=== PATIENT | female | born 1960 | race Caucasian/White ===

== ENCOUNTER → 2018-12-17 10:30 | Outpatient (CLI) | payer MEDICAID, SELFPAY ==
[2018-12-17 16:20] LABS: Basophils % 0.4 % (0.1-2.0); Hematocrit 40.9 % (37.0-47.0); Lymphocytes # 1.9 K/mm3 (0.7-4.5); Mean Corpuscular HGB Conc 34.1 g/dL (31.8-35.4); Mean Corpuscular Volume 88.1 fl (81-99); Mean Platelet Volume 8.8 fl (7.4-10.4); Monocytes # 0.4 K/mm3 (0.1-1.0); Monocytes % 7.5 % (1.7-9.3); Neutrophils # 2.8 K/mm3 (1.8-7.8); Neutrophils % 55.1 % (37.0-80.0); Platelet Count 215 K/mm3 (142-424); Red Blood Count 4.65 M/mm3 (4.20-5.40); Red Cell Distribution Width 13.1 % (11.5-17.5); White Blood Count 5.1 K/mm3 (4.8-10.8)
[2018-12-17 16:53] LABS: Alanine Aminotransferase 36 U/L (12-78); Albumin Level 3.7 gm/dL (3.4-5.0); Albumin/Globulin Ratio 1.2 (1.1-1.8); Alkaline Phosphatase 72 U/L (46-116); Anion Gap 15.2 mEq/L (5-15); Aspartate Amino Transferase 31 U/L (15-37); Bilirubin,Total 0.5 mg/dL (0.2-1.0); Blood Urea Nitrogen 9 mg/dL (7-18); Calcium 8.9 mg/dL (8.5-10.1); Carbon Dioxide 26 mmol/L (21.0-32.0); Chloride 105 mmol/L (98-107); Chol/HDL Ratio 5.2 (1-3.5); Cholesterol 197 mg/dL (140-200); Creatinine,Serum 0.82 mg/dL (0.55-1.02); Estimated Glomerular Filt Rate 71 ml/min (>60); GFR (African American) 86 ML/MIN (>60); Globulin 3.2 gm/dl (1.3-3.2); Glucose 91 mg/dL (74-106); HDL Cholesterol 38 mg/dL (29-89); LDL Cholesterol 132 mg/dL (0-130); Potassium 4.2 mmoL/L (3.5-5.1); Sodium 142 mmol/L (136-145); T4 (Thyroxine) 4.9 ug/dl (4.7-13.3); Thyroid Stimulating Hormone 28.16 uIU/ml (0.358-3.740); Total Protein,Serum 6.9 gm/dL (6.4-8.2); Triglycerides 133 mg/dL (30-200); VLDL Cholesterol 27 mg/dL (0-40)
[2018-12-17 19:04] LABS: Amphetamine/Metha Screen,Urine Negative ng/mL (<1000); Barbiturates Screen,Urine Negative ng/mL (<200); Benzodiazepines Screen,Urine Negative ng/mL (<200); Cannabinoid Screen,Urine Negative ng/mL (<50); Cocaine Screen,Urine Negative ng/mL (<300); Methadone Screen,Urine Positive ng/mL (<300); Opiate Screen,Urine Positive ng/mL (<300); Phencyclidine Screen,Urine Negative ng/mL (<25)
[2018-12-19 08:31] LABS: Vitamin D 25 Hydroxy 22.6 ng/mL (30.0-100.0)
== END ==
PROVIDERS: PCP Emergency Medicine; Visit Provider Nurse Practitioner Family
DX: R53.83 Other fatigue (principal); R00.2 Palpitations; R22.9 Localized swelling, mass and lump, unspecified; F32.9 Major depressive disorder, single episode, unspecified; E55.9 Vitamin D deficiency, unspecified
CPT/HCPCS: 80053; 80061; 80305; 82652; 84436; 84443; 85025; 93225; 93226

== ENCOUNTER → 2019-01-28 15:49 | Outpatient (CLI) | payer MEDICAID, SELFPAY ==
[2019-01-28 17:04] LABS: Erythrocyte Sedimentation Rate 30 mm/hr (0-30)
[2019-01-28 20:03] LABS: Free T4 (Free Thyroxine) 0.67 ng/dl (0.76-1.46); Thyroid Stimulating Hormone 15.03 uIU/ml (0.358-3.740)
[2019-01-28 20:06] LABS: C-Reactive Protein < 0.2 mg/L (0.0-0.9)
[2019-01-30 14:12] LABS: PTT-LA 46.1 sec (0.0-51.9); dRVVT 37.5 sec (0.0-47.0)
[2019-01-30 17:31] LABS: Anti-Centromere B Antibodies <0.2 AI (0.0-0.9); Anti-Jo-1 <0.2 AI (0.0-0.9); Anti-Smith Antibody <0.2 AI (0.0-0.9); Antichromatin Antibodies <0.2 AI (0.0-0.9); Antiscleroderma-70 Antibodies <0.2 AI (0.0-0.9); RNP Antibodies 0.4 AI (0.0-0.9); Sjogren's Anti-SS-A <0.2 AI (0.0-0.9); Sjogren's Anti-SS-B <0.2 AI (0.0-0.9)
[2019-01-30 18:21] LABS: Anti-DNA (DS) Ab Qn <1 IU/mL (0-9); Lupus Reflex Interpretation Comment: (.); RA Latex Turbid. <10.0 IU/mL (0.0-13.9)
[2019-01-31 06:36] LABS: Anti-Cyclic Citrullinated Pept 8 units (0-19)
== END ==
PROVIDERS: Visit Provider Nurse Practitioner Family
DX: R21 Rash and other nonspecific skin eruption (principal); R53.83 Other fatigue; R79.89 Other specified abnormal findings of blood chemistry; E66.9 Obesity, unspecified
CPT/HCPCS: 36415; 84439; 84443; 85613; 85651; 86140; 86200; 86225; 86235; 86431

== ENCOUNTER 2020-01-08 16:41 | Emergency (ER) | payer MEDICAID, SELFPAY ==
[2020-01-08 17:01] VITALS: BP 155/90; PULSE 86; RESP 18; TEMP 36.7; O2SAT 98; BMI 44.1
[2020-01-08 17:08] LABS: Apearance,Urine Clear (Clear); Bilirubin,Urine Negative (Negative); Blood, Urine Trace (Negative); Color,Urine Yellow (Yellow); Glucose,Urine (UA) Negative (Negative); Ketones,Urine Negative (Negative); Protein,Urine 1+ (Negative); UTC Leukocyte Esterase,Urine 1+ (Negative); UTC Nitrate,Urine Negative (Negative); Urobilinogen,Urine 4 EU/dl (0.2)
--- NOTE | 2020-01-08 17:11 | HMH.EDUTC ---
[facility] [place] Disposition Clinical Impression: UTI (urinary tract infection) Qualifiers: Urinary tract infection type: site unspecified Hematuria presence: with hematuria Qualified Code(s): N39.0 - Urinary tract infection, site not specified; R31.9 - Hematuria, unspecified Disposition: Home, Self-Care Condition on Discharge: Good Instructions: Urinary Tract Infection, DI for Urinary Tract Infection (UTI), Nitrofurantoin, Nitrofurantoin (Alternative Therapy) Additional Instructions: *Increase fluids. Water not Soda or Tea *Start antibiotic immediately and be sure to take as ordered for the FULL length of time although you should start to see improvement over the next 48 hours *Pyridium as needed Remember this medication will turn your urine Hudson. This is normal but it will stain what ever it gets on *You should not use Pyridium for more than 48 hours. If so , follow up with your primary physician to review urine culture and ensure that antibiotic is adequate for infection *Be SURE to follow up anytime for new or worsening symptoms with your family doctor. AND in 48 hours for urine culture results with your family doctor, if you do not have a doctor then you may call back to the [facility] for urine culture results and further treatment. We do recommend that you choose and establish care with a Primary Care Physician. AND follow up with them in 10-14 days to repeat UA to ensure infection is resolved and blood no longer present *Be sure to let your PCP know that we sent urine cultures from the [facility] so they can follow up to ensure that you area the on the correct antibiotic Call your doctor office and make appointment for 48 hours (2 days from today) to follow up and get the results of your urine culture and further treatment Make sure to call back to the [facility] on Sunday for your urine culture results to see if you are on the right medication Straight to ER if any fever, chills or life threatening symptoms Prescriptions: Nitrofurantoin Monohyd/M-Cryst [Macrobid 100 mg Capsule] 100 mg PO BID 10 Days #20 cap Transmission Status: Pending to [id number] Phenazopyridine HCl [Pyridium 200mg Tablet] 200 pow PO TID #6 tab Transmission Status: Pending to [id number] Referrals: Vanda Maciel PA [Primary Care Provider] - As needed Time of Disposition: 17:20 Medical Decision Making - Mitch Inquiry Pt receiving controlled substance: No Mitch was queried for this patient: No Vital Signs: 01/08/20 17:01 Temperature 98.1 F Temperature Source Oral Pulse Rate [Right Brachial] 86 Respiratory Rate 18 Blood Pressure [Right Arm] 155/90 H Blood Pressure Mean [Right Arm] 111 Blood Pressure Source [Right Arm] Automatic Cuff Blood Pressure Position [Right Arm] Sitting 02 Sat by Pulse Oximetry 98 Oxygen Delivery Method Room Air - Lab Data Lab results reviewed: Yes: I reviewed the patient's lab results. Lab Results 01/08/20 17:08: Urine Color Yellow, Urine Appearance Clear, Urine pH 6.0, Ur Specific Winnett 1.020, Urine Protein 1+, Urine Glucose (UA) Negative, Urine Ketones Negative, Urine Blood Trace, Urine Nitrate Negative, Urine Bilirubin Negative, Urine Urobilinogen 4, Ur Leukocyte Esterase 1+ A - Reevaluation(s) Time: 17:15 Reevaluation #1: Patient states that she has a history of kidney stone but reports pain doesnt feel like she has had before with kidney stone discussed with patient that we could send her to ED for CT and patient refused [facility] [place] HPI - General Stated complaint: Possible UTI Time Seen by Provider: 01/08/20 17:11 Mode of Arrival: Ambulatory Source of Information: Patient Limitations: No Limitations Description of Symptoms (Recalled from Triage Doc. by RN): PATIENT C/O LEFT FLANK PAIN, PAINFUL URINATION, AND FOUL SMELLING URINE X 4-5 DAYS; DENIES FEVER OR ANY OTHER SYMPTOMS HEENT Symptoms (Recalled from RN notes): No Resp Symptoms (Recalled from RN notes): No Skin Symptoms (Recalled from RN notes)
[2020-01-08 17:22] VITALS: BP 155/90; PULSE 86; RESP 18; TEMP 36.7; O2SAT 98
== END 2020-01-08 17:25 | disposition home or self-care (01) ==
PROVIDERS: Emergency Provider Nurse Practitioner; PCP Physician Assistant
DX: N30.01 Acute cystitis with hematuria (principal); F41.8 Other specified anxiety disorders; E03.9 Hypothyroidism, unspecified; Z87.442 Personal history of urinary calculi; Z79.899 Other long term (current) drug therapy
CPT/HCPCS: 81003; 87086; 87088; 87186; 99201

== ENCOUNTER → 2020-01-13 13:19 | Outpatient (CLI) | payer MEDICAID, SELFPAY ==
--- NOTE | 2020-01-13 13:24 | MR_ITS ---
PROCEDURE: MR LUMBAR SPINE WO CON CLINICAL INDICATION: LOW BACK PAIN COMPARISON: PHLEBOTOMY SUPPORT TECH/O MRI-L-SPINE W/O from 05/10/2015 TECHNIQUE: Standard multiplanar multiecho sequences are performed without contrast. 3-D MIP and myelographic images are also rendered and reviewed FINDINGS: Disc space narrowing and partial ankylosis at L3-4 with degenerative narrowing and Modic changes are again noted at the levels of L4-5 and L5-S1. There is otherwise uniform fat marrow signal hyperintensity. The spinal cord and conus medullaris is unremarkable. At the T11-T12 disc space there is no significant spinal stenosis. At the T12-L1 disc space there is mild facet arthropathy producing mild central canal stenosis. At the L1-2 disc space there is moderate facet arthropathy and hypertrophy of the ligamentum flavum as well as a broad-based disc protrusion producing stable mild central canal and mild bilateral neural foraminal stenosis. At the L3-4 disc space there is a stable broad-based disc osteophyte complex and moderate facet arthropathy producing stable mild central canal and mild bilateral neural foraminal stenosis. At the L4-5 disc space there is a broad-based disc osteophyte complex, moderate facet arthropathy, and hypertrophy of the ligamentum flavum producing stable mild central canal and mild bilateral neural foraminal stenosis. At the L5-S1 disc spaces in eccentric disc osteophyte complex and mild facet arthropathy producing mild central canal and mild left neural foraminal stenosis. The bilateral paralumbar structures are unremarkable. IMPRESSION: Stable multilevel spinal stenosis as above Dictated by: Cruzito Valverde 01/13/2020 15:58 Electronically signed by Cruzito Valverde in [place] 01/13/2020 15:58
== END ==
PROVIDERS: PCP Emergency Medicine; Visit Provider Pain Medicine Interventional Pain Medicine
DX: M54.5 Low back pain (principal)
CPT/HCPCS: 72148; 76376

== ENCOUNTER → 2021-12-19 09:53 | Outpatient (CLI) | payer MEDICAID, SELFPAY ==
[2021-12-16 16:51] LABS: Basophils # 0.1 K/mm3 (0-0.2); Basophils % 1.1 % (0.1-2.0); Hematocrit 42.2 % (37.0-47.0); Hemoglobin 14.2 g/dL (12.2-16.2); Lymphocytes # 2.1 K/mm3 (0.7-4.5); Lymphocytes % 29.5 % (10-50); Mean Corpuscular HGB Conc 33.5 g/dL (31.8-35.4); Mean Corpuscular Hemoglobin 31.5 pg (27.0-31.2); Mean Platelet Volume 9.2 fl (7.4-10.4); Monocytes # 0.5 K/mm3 (0.1-1.0); Monocytes % 6.9 % (1.7-9.3); Neutrophils # 4.4 K/mm3 (1.8-7.8); Neutrophils % 62.4 % (37.0-80.0); Platelet Count 246 K/mm3 (142-424); Red Blood Count 4.49 M/mm3 (4.20-5.40); Red Cell Distribution Width 13.4 % (11.5-17.5)
[2021-12-16 17:00] LABS: Alanine Aminotransferase 31 U/L (12-78); Albumin/Globulin Ratio 1.4 (1.1-1.8); Alkaline Phosphatase 76 U/L (38-126); Anion Gap 10.5 mEq/L (5-15); Aspartate Amino Transferase 44 U/L (14-36); Bilirubin,Total 0.5 mg/dl (0.2-1.3); Blood Urea Nitrogen 14 mg/dl (7-17); Calcium 9.5 mg/dl (8.4-10.2); Carbon Dioxide 29 mmol/L (22.0-30.0); Chloride 102 mmol/L (98-107); Chol/HDL Ratio 4.1 (1-3.5); Cholesterol 186 mg/dl (140-200); Estimated Glomerular Filt Rate 85 ml/min (>60); GFR (African American) 102 ML/MIN (>60); Globulin 2.8 g/dL (1.3-3.2); Glucose 92 mg/dl (74-100); HDL Cholesterol 45 mg/dl (40-60); Potassium 4.5 mmoL/L (3.5-5.1); Sodium 137 mmol/L (136-145); Total Protein,Serum 6.8 g/dl (6.3-8.2); Triglycerides 158 mg/dl (30-150); VLDL Cholesterol 32 mg/dL (0-40)
[2021-12-16 17:11] LABS: Direct LDL Cholesterol 103.48 mg/dL (100-129)
[2021-12-16 17:17] LABS: T4 (Thyroxine) 8.9 ug/dl (5.53-11.0)
[2021-12-16 17:18] LABS: 25-OH Vitamin D, Total 27.7 ng/mL (30-100)
== END ==
PROVIDERS: PCP Nurse Practitioner Family; Visit Provider Nurse Practitioner Family
DX: Z00.00 Encounter for general adult medical examination without abnormal findings (principal); E55.9 Vitamin D deficiency, unspecified; Z79.899 Other long term (current) drug therapy
CPT/HCPCS: 80053; 80061; 82306; 84436; 84443; 85025

== ENCOUNTER → 2022-01-11 10:10 | Outpatient (CLI) | payer MEDICAID, SELFPAY ==
[2022-01-11 10:14] LABS: Adenovirus F 40/41, stool Not Detected (NotDetected); Astrovirus Not Detected (NotDetected); Campylobacter Not Detected (NotDetected); Cryptosporidium Not Detected (NotDetected); Cyclospora Cayetanesis Not Detected (NotDetected); Entamoeba histolytica Not Detected (NotDetected); Enteroaggregative E coli Not Detected (NotDetected); Enteropathogenic E coli Not Detected (NotDetected); Enterotoxigenic E coli Not Detected (NotDetected); Giardia lamblia Not Detected (NotDetected); Norovirus Not Detected (NotDetected); Plesimonas Shigalloides, PCR Not Detected (NotDetected); Rotavirus A Not Detected (NotDetected); Salmonella, PCR Not Detected (NotDetected); Sapovirus Not Detected (NotDetected); Shiga-like toxin E coli Not Detected (NotDetected); Shigella Enterovasive E coli Not Detected (NotDetected); Vibrio Cholerae Not Detected (NotDetected); Vibrio, PCR Not Detected (NotDetected); Yersinia Entercolitica, PCR Not Detected (NotDetected)
[2022-01-11 23:10] LABS: Clostridium Difficile A/B, PCR Detected (NotDetected)
== END ==
PROVIDERS: PCP Family Medicine; Visit Provider Family Medicine
DX: R19.7 Diarrhea, unspecified (principal); A04.72 Enterocolitis due to Clostridium difficile, not specified as recurrent
CPT/HCPCS: 87506

== ENCOUNTER → 2022-09-19 23:33 | Outpatient (CLI) | payer MEDICAID, SELFPAY ==
[2022-09-19 19:00] LABS: Basophils # 0.1 K/mm3 (0-0.2); Basophils % 0.8 % (0.1-2.0); Eosinophils % 0.2 % (0.1-12.0); Hematocrit 44.2 % (37.0-47.0); Hemoglobin 14.7 g/dL (12.2-16.2); Lymphocytes # 2.1 K/mm3 (0.7-4.5); Lymphocytes % 32.9 % (10-50); Mean Corpuscular HGB Conc 33.2 g/dL (31.8-35.4); Mean Corpuscular Hemoglobin 30.1 pg (27.0-31.2); Mean Corpuscular Volume 90.6 fl (81-99); Mean Platelet Volume 8.8 fl (7.4-10.4); Monocytes # 0.5 K/mm3 (0.1-1.0); Monocytes % 7.5 % (1.7-9.3); Neutrophils # 3.7 K/mm3 (1.8-7.8); Neutrophils % 58.7 % (37.0-80.0); Platelet Count 225 K/mm3 (142-424); Red Blood Count 4.88 M/mm3 (4.20-5.40); Red Cell Distribution Width 13.3 % (11.5-17.5); White Blood Count 6.3 K/mm3 (4.8-10.8)
[2022-09-19 19:17] LABS: Alanine Aminotransferase 29 U/L (12-78); Albumin Level 4.4 g/dl (3.5-5.0); Albumin/Globulin Ratio 1.5 (1.1-1.8); Alkaline Phosphatase 67 U/L (38-126); Anion Gap 6.5 mEq/L (5-15); Aspartate Amino Transferase 43 U/L (14-36); Bilirubin,Total 0.6 mg/dl (0.2-1.3); Blood Urea Nitrogen 14 mg/dl (7-17); Calcium 9.2 mg/dl (8.4-10.2); Carbon Dioxide 31 mmol/L (22.0-30.0); Chloride 105 mmol/L (98-107); Chol/HDL Ratio 5.2 (1-3.5); Cholesterol 227 mg/dl (140-200); Estimated Glomerular Filt Rate 72 ml/min (>60); GFR (African American) 87 ML/MIN (>60); Glucose 78 mg/dl (74-100); HDL Cholesterol 44 mg/dl (40-60); Potassium 4.5 mmoL/L (3.5-5.1); Sodium 138 mmol/L (136-145); Total Protein,Serum 7.4 g/dl (6.3-8.2); Triglycerides 194 mg/dl (30-150); VLDL Cholesterol 39 mg/dL (0-40)
[2022-09-19 19:19] LABS: Iron 105 ug/dL (37-170)
[2022-09-19 19:28] LABS: Total Iron Binding Capacity 379 ug/dL (265-497)
[2022-09-19 19:29] LABS: Direct LDL Cholesterol 137.51 mg/dL (100-129)
[2022-09-19 19:34] LABS: 25-OH Vitamin D, Total 56.3 ng/mL (30-100)
[2022-09-19 19:48] LABS: Thyroid Stimulating Hormone 8.91 uIU/mL (0.465-4.68)
[2022-09-19 19:55] LABS: Ferritin 97.4 ng/ml (11.1-264)
[2022-09-19 20:07] LABS: Vitamin B12 982 pg/mL (239-931)
== END ==
PROVIDERS: PCP Physician Assistant; Visit Provider Physician Assistant
DX: Z00.00 Encounter for general adult medical examination without abnormal findings (principal); R06.02 Shortness of breath; I10 Essential (primary) hypertension; E66.9 Obesity, unspecified; R94.5 Abnormal results of liver function studies
CPT/HCPCS: 80053; 80061; 82306; 82607; 82728; 83540; 83550; 84443; 85025

== ENCOUNTER → 2022-09-28 07:29 | Outpatient (CLI) | payer MEDICAID, SELFPAY ==
--- NOTE | 2022-09-28 07:29 | US_ITS ---
FINAL REPORT TECHNIQUE: Ultrasound images of the kidneys were obtained. CLINICAL HISTORY: .hypertension FINDINGS: US RETROPERITONEAL The right kidney measures 8.7 cm in length. There is no mass or hydronephrosis. The left kidney measures 10.2 cm in length. There is no mass or hydronephrosis. There is renal cortical thinning. The spleen measures 10.3 cm in length. IMPRESSION: Left renal cortical thinning, otherwise unremarkable exam. Reviewed, Interpreted and Dictated by Omar Smith III, MD Transcribed by Maren Miranda Authenticated and [facility]
--- NOTE | 2022-09-28 08:46 | CA_ITS ---
FINAL REPORT TECHNIQUE: Grayscale, color Doppler and duplex Doppler ultrasound of the kidneys, aorta and renal arteries was performed. Multiple velocities were measured. CLINICAL HISTORY: HTN,HX KIDNEY STONES,OBESITY FINDINGS: Aorta velocity: 107 cm/sec Right kidney: 10.8 cm. No evidence of hydronephrosis or mass. Right intrarenal RI: 0.68 Right renal artery velocity: 325 cm/sec. Right RAR (Renal artery-Aortic Ratio): 3.0 Left Kidney: 10.2 cm. No evidence of hydronephrosis or mass. Left intrarenal RI: 0.62 Left renal artery velocity: 333 cm/sec. Left RAR (Renal Artery-Aortic Ratio): 3.1 IMPRESSION: Findings consistent with greater than 60% bilateral renal artery stenosis. Recommend CTA or catheter angiogram for further evaluation. Reviewed, Interpreted and Dictated by Omar Smith III, MD Transcribed by Maren Miranda Authenticated and [facility]
--- NOTE | 2022-09-28 09:20 | ECG_ITS ---
APPROVED REPORT Exam: Resting ECG HR:44 bpm ECG Measurements Heart Rate 44 AXES NM 153 P 67 QRSd 81 QRS 52 QT 440 T 55 QTc 390 Conclusion SINUS BRADYCARDIA BORDERLINE ECG UNCONFIRMED REPORT Electronically signed by : Doni Garcia MD 09/29/2022 08:13:05
== END ==
PROVIDERS: PCP Physician Assistant; Visit Provider Physician Assistant
DX: R06.02 Shortness of breath (principal); I10 Essential (primary) hypertension
CPT/HCPCS: 76770; 93005; 93976

== ENCOUNTER 2022-10-30 08:41 | Day surgery (SDC) | payer MEDICAID, SELFPAY ==
[2022-10-30] VITALS (10 sets, daily range): BP systolic 95–172; BP diastolic 50–97; PULSE 57–74; RESP 16–20; O2SAT 94–954; BMI 45.2
--- NOTE | 2022-10-30 07:57 | IR_ITS ---
APPROVED REPORT Patient Location: Outpatient PROCEDURES Bilateral selective renal angiography Bare-metal stent deployment to the ostial proximal left renal artery Bare-metal stent deployment to the ostial proximal right renal artery INDICATION Malignant hypertension, Renovascular hypertension, Renal artery stenosis, Abnormal renal duplex with greater than 60% stenosis, 35 mm gradient across the right renal artery using a 4 Dominican JR4 catheter Informed consent was obtained prior to the procedure. COMPLICATIONS None Estimated Blood Loss: Less than 10 mls TECHNIQUE 1% lidocaine used to anesthetize the right femoral groin. The right femoral artery was accessed via the Seldinger technique. A 4 Dominican sheath was placed in the right femoral artery. The JR4 catheter was used to selectively intubate each renal artery. At the end the diagnostic angiogram therapeutic heparin is administered giving a therapeutic ACT and the 4 Dominican sheath exchanged for a 7 Dominican sheath. Shortly and the guide catheter was placed in the left renal artery followed by Choice PT extra-support wire. A 6 mm x 12 mm Herculink bare-metal stent was deployed at 18 umesh reducing the severe stenosis to 0%. This procedure was repeated on the right renal artery after 35 mm gradient was identified using a 4 Dominican JR4 catheter. A 6 mm x 18 mm Herculink stent was then deployed at 18 umesh in the ostial proximal portion of the right renal artery reducing the stenosis to 0%. After achieving excellent angiograph results the apparatus was removed the groin is reprepped closure change sheath was removed good hemostasis was achieved using Perclose device patient was transferred to the postop holding in stable condition ANGIOGRAPHIC RESULTS Left renal artery singular and has an ostial 80% stenosis Right renal artery singular has an ostial and proximal 50% stenosis IMPRESSION Severe bilateral renal artery stenosis Successful percutaneous revascularization of each renal artery severe disease reduced to 0% with 1 bare-metal stent in each ostial proximal segment of the renal artery PLAN 1. Aspirin and Plavix for 1 month 2. Aggressive risk factor modification 3. Evaluation of coronary artery disease based on peripheral artery disease Electronically signed by : Stanford Cordero MD 10/30/2022 11:27:39
[2022-10-30 09:15] LABS: MANUAL DIFFERENTIAL MANUAL DIFFERENTIAL (MANUAL DIFF)
[2022-10-30 09:20] LABS: Basophils % 0.4 % (0.1-2.0); Eosinophils % 0.2 % (0.1-12.0); Hematocrit 43.5 % (37.0-47.0); Hemoglobin 14.1 g/dL (12.2-16.2); Lymphocytes # 2.6 K/mm3 (0.7-4.5); Lymphocytes % 33.1 % (10-50); Mean Corpuscular HGB Conc 32.4 g/dL (31.8-35.4); Mean Corpuscular Hemoglobin 29.2 pg (27.0-31.2); Mean Corpuscular Volume 90.3 fl (81-99); Mean Platelet Volume 8.3 fl (7.4-10.4); Monocytes # 0.6 K/mm3 (0.1-1.0); Monocytes % 7.6 % (1.7-9.3); Neutrophils # 4.6 K/mm3 (1.8-7.8); Neutrophils % 58.7 % (37.0-80.0); Platelet Count 228 K/mm3 (142-424); Red Blood Count 4.82 M/mm3 (4.20-5.40); Red Cell Distribution Width 12.4 % (11.5-17.5); White Blood Count 7.9 K/mm3 (4.8-10.8)
[2022-10-30 09:23] LABS: Chloride 103 mmol/L (98-107); Potassium 4.2 mmoL/L (3.5-5.1); Sodium 137 mmol/L (136-145)
[2022-10-30 09:26] LABS: Blood Urea Nitrogen 22 mg/dl (7-17); Creatinine Clearance Estimated 51 mL/min (50-200); Estimated Glomerular Filt Rate 56 ml/min (>60); GFR (African American) 68 ML/MIN (>60)
[2022-10-30 09:27] LABS: Anion Gap 10.2 mEq/L (5-15); Calcium 9.1 mg/dl (8.4-10.2); Carbon Dioxide 28 mmol/L (22.0-30.0); Glucose 101 mg/dl (74-100)
[2022-10-30 10:06] LABS: Lymphocytes % 49 % (10-50); Monocytes % 6 % (2-9); Neutrophils % 45 % (42-76); Platelet Estimate Normal; Total Cells Counted 100
[2022-10-30 10:07] LABS: RBC Morphology Normal
[2022-10-30 12:11] LABS: CATHL Activated Clotting Time 281 SEC (74-125)
--- NOTE | 2022-10-30 15:02 | P.CONPHA_ITS ---
PHA Green Building Materials Designer Discharge Med Principle Software Engineer: Karla Garrett has received discharge medication counseling on the following medications: PATIENT HAS NEW PRESCRIPTIONS FOR ASPIRIN 81 MG DAILY AND CLOPIDOGREL 75 MG DAILY. SHE HAS BEEN TAKING ATORVASTATIN 10 MG HS, LISINOPRIL 10 MG DAILY AND METOPROLOL SUCCINATE 25 MG DAILY.
== END 2022-10-30 15:07 | disposition home or self-care (01) ==
PROVIDERS: PCP Physician Assistant; Visit Provider Internal Medicine
DX: R93.429 Abnormal radiologic findings on diagnostic imaging of unspecified kidney (principal); I70.1 Atherosclerosis of renal artery; I15.0 Renovascular hypertension; I77.1 Stricture of artery; R29.6 Repeated falls; I10 Essential (primary) hypertension; E03.9 Hypothyroidism, unspecified; Z82.49 Family history of ischemic heart disease and other diseases of the circulatory system
CPT/HCPCS: 37236; 37237; 80048; 85007; 85014; 85018; 85048; 85049; 85347; 99152; C1725; C1760; C1769; C1876; C1887; C1894; J1644; Q9967

== ENCOUNTER 2022-11-01 16:17 | Emergency (ER) | payer MEDICAID, SELFPAY ==
[2022-11-01 16:35] VITALS: BP 121/62; PULSE 61; PULSE 65; RESP 18; TEMP 36.8; O2SAT 93; O2SAT 96; BMI 44.9
--- NOTE | 2022-11-01 16:40 | HMH.EDGENADL ---
Discharge Plan Disposition Patient Disposition: Home, Self-Care Condition: Good Chief Complaint: PAIN Prescriptions Prescriptions: No Action methadone 10 mg tablet 10 mg PO TID PRN (Reason: BACK AND LEG PAIN) hydrocodone-acetaminophen [[place]] 10-325 mg tablet 1 tab PO DAILY celecoxib 100 mg capsule 100 mg PO DAILY duloxetine 30 mg capsule,delayed release(DR/EC) 30 mg PO DAILY atorvastatin 10 mg tablet 10 mg PO DAILY levothyroxine 50 mcg tablet 50 mcg PO DAILY Rx Instructions: Combined with 200mcg tablet to make 250mcg daily lisinopril 10 mg tablet 10 mg PO DAILY levothyroxine 200 mcg tablet 200 mcg PO DAILY Rx Instructions: Combined with 50mcg tablet to make 250mcg metoprolol succinate [Toprol XL] 25 mg tablet extended release 24 hr 25 mg PO DAILY loratadine [Claritin] 10 mg tablet 10 mg PO DAILY clopidogrel [Plavix] 75 mg Tablet 75 mg PO DAILY Qty: 30 3RF aspirin 81 mg Tablet,Chewable 81 mg PO DAILY Qty: 30 3RF Referrals Follow up/Referrals: Vanda Maciel PA [Primary Care Provider] - See instructions Activity Restrictions/Add. Instructions Additional Instructions/Restrictions: At this time was felt you are safe to be discharged from the emergency department. If new or worsening symptoms please do not hesitate to return for continued evaluation. Please follow-up with your family doctor for continued evaluation of your pain within 1 week Clinical Impressions Clinical Impression: Acute leg pain Discharge ED Provider: Long Garibay General Adult HPI General Chief complaint: PAIN Stated complaint: Cath Cab Sunday Burning in R Leg Time Seen by Provider: 11/01/22 16:35 History of Present Illness HPI narrative: Patient is a 62-year-old female with past medical history of recent heart catheterization in the right femoral access site who presents emergency department for evaluation of medial thigh pain. Patient has had medial thigh pain since her heart cath and after being evaluated by cardiology has been sent over here due to concern for possible DVT. No other acute complaints at this time. Thigh pain is described as burning, moderate to severe in intensity, intermittent. Related Data Home Medications Medication Instructions Recorded Confirmed hydrocodone 10 mg-acetaminophen 1 tab PO DAILY BACK/LEG PAIN 10/15/17 10/12/22 325 mg tablet ([place]) methadone 10 mg tablet 10 mg PO TID PRN BACK AND LEG PAIN 10/15/17 10/12/22 celecoxib 100 mg capsule 100 mg PO DAILY mood' 09/19/22 10/12/22 duloxetine 30 mg capsule,delayed 30 mg PO DAILY mood 09/19/22 10/12/22 release atorvastatin 10 mg tablet 10 mg PO DAILY Cholesterol 10/30/22 levothyroxine 200 mcg tablet 200 mcg PO DAILY thyroid 10/30/22 levothyroxine 50 mcg tablet 50 mcg PO DAILY thyroid 10/30/22 lisinopril 10 mg tablet 10 mg PO DAILY htn 10/30/22 loratadine 10 mg tablet (Claritin) 10 mg PO DAILY allergies 10/30/22 metoprolol succinate 25 mg 25 mg PO DAILY htn 10/30/22 tablet,extended release 24 hr (Toprol XL) Previous Rx's Medication Instructions Recorded aspirin 81 mg chewable tablet 81 mg PO DAILY #30 tabs 10/30/22 clopidogrel 75 mg tablet (Plavix) 75 mg PO DAILY #30 tabs 10/30/22 Allergies Allergy/AdvReac Type Severity Reaction Status Date / Time morphine Allergy Verified 10/12/22 13:47 [facility] Disclaimer: The information contained in this section may have been updated after the patient was seen, as this information can be updated by other users. Medical History (Updated 11/01/22 @ 17:55 by Long Garibay MD) Abnormal renal ultrasound Anxiety Depression Dizziness Dyspnea Environmental allergies Exposure to mold Fatigue Hypothyroidism Surgical History H/O tubal ligation Hx of tonsillectomy Family History (Updated 10/30/22 @ 09:13 by Kamala Horton Ba
[2022-11-01 16:44] VITALS: BMI 44.9
--- NOTE | 2022-11-01 16:44 | CA_ITS ---
FINAL REPORT TECHNIQUE: Multiple transverse and longitudinal images were performed of right the femoral-popliteal deep venous system with augmentation and compression maneuvers. CLINICAL HISTORY: Heart cath 10/30/22 with right groin access. Patient states she has had burning in groin since the cath. Denies trauma. HTN, HLD, CAD with recent cardiac stents. 81 mg ASA, Plavix daily. COMPARISON: None FINDINGS: Right lower extremity duplex ultrasound demonstrates normal flow in the deep venous system. There is no abnormal echogenicity to suggest thrombus. There is normal compression and augmentation. IMPRESSION: No evidence of right DVT. Reviewed, Interpreted and Dictated by Omar Smith III, MD Transcribed by Diana Soria Authenticated and [facility]
--- NOTE | 2022-11-01 17:18 | PC.NURSE ---
vascular was at bedside for doppler, she gave md a report
[2022-11-01 18:25] VITALS: BP 118/70; PULSE 69; RESP 20; TEMP 36.8; O2SAT 97
== END 2022-11-01 18:31 | disposition home or self-care (01) ==
PROVIDERS: Emergency Provider Emergency Medicine; PCP Physician Assistant
DX: M79.651 Pain in right thigh (principal); G89.18 Other acute postprocedural pain
CPT/HCPCS: 93971; 99284

== ENCOUNTER → 2022-11-02 19:08 | Outpatient (CLI) | payer MEDICAID, SELFPAY | PROVIDERS: PCP Physician Assistant; Visit Provider Physician Assistant | DX: S74.11XA Injury of femoral nerve at hip and thigh level, right leg, initial encounter (principal); B95.4 Other streptococcus as the cause of diseases classified elsewhere | CPT/HCPCS: 87070; 87077; 87186; 87205 ==

== ENCOUNTER → 2022-11-13 11:26 | Outpatient (CLI) | payer MEDICAID, SELFPAY | PROVIDERS: PCP Physician Assistant; Visit Provider Nurse Practitioner Family | DX: M79.606 Pain in leg, unspecified (principal); R06.00 Dyspnea, unspecified; R06.02 Shortness of breath; R42 Dizziness and giddiness; I10 Essential (primary) hypertension; R53.83 Other fatigue; R93.429 Abnormal radiologic findings on diagnostic imaging of unspecified kidney; E66.9 Obesity, unspecified; Z68.41 Body mass index [BMI] 40.0-44.9, adult | CPT/HCPCS: 93926 ==

== ENCOUNTER → 2022-12-11 11:48 | Outpatient (CLI) | payer MEDICAID, SELFPAY ==
--- NOTE | 2022-12-11 | CA_ITS ---
APPROVED REPORT Exam: Pharmacologic Technologist: Ely Rader, Ht: 5 ft 5 in Wt: 267 lbs BSA: 2.24 m2 HR: 82 bpm BP: 91/43 mmHg Rhythm: NSR Medical History Medical History: HTN, Hyperlipidemia Medications: Lisinopril,,,,, Aspirin,,,,, Gabapentin,,,,, Atorvastatin,,,,, Flonase,,,,, CloPIdogrel,,,,, [place],,,,, DulOXETINE,,,,, MethADONE,,,,, LoraTADINE,,,,, Levoflaxacin,,,,, Metoprolol Succinate ER,,,,, Allergies: MORPHINE Cardiac Risk Factors: HTN, Hyperlipidemia, FHX of CAD Stress Test Details Test: LEXISCAN HR Resting HR: 81 bpm Max Heart Rate (APMHR): 156 bpm Max HR Achieved: 109 bpm Target HR (85% APMHR): 133 bpm % of APMHR: 70 Recovery HR: 76 bpm BP Resting BP: 91/43 mmHg Max BP: 143/71 mmHg Recovery BP: 97.0/67.0 mmHg ECG Resting ECG: NSR Arrhythmia: APC's Clinical Exercise duration: 04:07 min Highest Stage Achieved: Exercise capacity: n/a METs Stress ECG Conclusion PT DEVELOPED A HEADACHE FOLLOWING [facility] [employer] OCCASIONAL PAC NO ISCHEMIC CHANGES Test Summary REST . . . . . . . Sitting REST 03:59 . . 81 . 91/ 43 . . Stage 1 01:00 . . 108 . 107/ 69 . . Stage 2 01:00 . . 81 . . . . Stage 3 01:00 . . 80 . 143/ 71 . . Stage 4 01:00 . . 93 . 127/ 76 . . Stage 4 01:07 . . 88 . 127/ 76 . Stop exercise at 04:07 RECOVERY 01:00 . . 77 . . . . RECOVERY 02:00 . . 85 . 102/ 69 . . RECOVERY 03:00 . . 76 . 94/ 73 . . RECOVERY 04:00 . . 76 . 94/ 73 . . RECOVERY 04:25 . . 81 . 97/ 67 . . Electronically signed by : Trudy Goodman, 12/11/2022 18:00:05
--- NOTE | 2022-12-11 11:48 | NM_ITS ---
APPROVED REPORT Exam: Nuclear Stress Test Indication: soa..fatigue..palpitations Patient Location: Outpatient Stress Tech: Ely Rader [place] Tech:CHRISTY Gonzalez RT (R)(N)(M) Ht: 5 ft 6 in Wt: 269 lbs Bra Size: 42d HR: 82 bpm BP: 91/43 mmHg BSA: 2.27 m2 TID: 1.13 BMI: 43.4 History: soa..fatigue..palpitations Procedure: Patient received 0.4 mg of intravenous Lexiscan, resting heart rate 82 bpm, resting blood pressure 91/43 mmHg, with Lexiscan maximum heart rate achieved was 91 bpm which is 85 % of the maximum predicted heart rate and blood pressure was 141/71 mmHg. With Lexiscan, patient denied any complaint of chest pain. The pt was not able to lay on her abdomen for prone images. Cardiac Stress and Resting SPECT Images: Cardiac Stress and Resting SPECT images were obtained using technetium 99m Myoview 30.3 mCi stress and 10.82 mCi at rest. The study is limited due to significant breast and diaphragmatic interference in the raw images, along with absence of prone stress imaging. The diagnostic capacity may therefore be affected. Resting and gated imaging demonstrate a large-sized, moderate, fixed perfusion defect anteriorly in the entire anterior LV region. There is also a medium-sized, mild fixed perfusion defect present inferiorly. Gated images demonstrate a normal LV global and regional systolic function. LVEF is calculated at 65% Conclusion: The study is limited due to significant breast and diaphragmatic interference in the raw images, along with absence of prone stress imaging. The diagnostic capacity may therefore be affected. Resting and gated imaging demonstrate a large-sized, moderate, fixed perfusion defect anteriorly in the entire anterior LV region, as well as a medium-sized, mild fixed perfusion defect inferioly. Findings may be suggestive of soft tissue attenuation anteriorly and diaphragmatic attenuation inferiorly, considering these findings are associated with normal LV global and regional systolic function, absence of any major wall hypokinesis, the soft tissue and diaphragmatic interference in the raw images, and the non-ischemic findings on baseline and stress ECG. Nonetheless, prone stress imaging is not available, and therefore perfusion defects cannot be conclusively excluded. Gated images demonstrate a normal LV global and regional systolic function. LVEF is calculated at 65% Electronically signed by : Trudy Goodman, 12/11/2022 18:17:06
--- NOTE | 2022-12-11 13:53 | US_ITS ---
FINAL REPORT CLINICAL HISTORY: leg pain, HTN, hyperlipidemia, bilateral claudication, right rest pain, CAD FINDINGS: ANKLE/BRACHIAL INDICES FINDINGS: Pressure indices are as follows: RIGHT LOWER EXTREMITY: Ankle brachial pressure index: 1.0 Comments: Normal LEFT LOWER EXTREMITY: Ankle brachial pressure index: 0.9 Comments: Borderline IMPRESSION: No evidence of significant obstructive peripheral vascular disease of the lower extremities. Reviewed, Interpreted and Dictated by Omar Smith III, MD Transcribed by Ernie Poon Authenticated and . [facility]
== END ==
PROVIDERS: PCP Physician Assistant; Visit Provider Nurse Practitioner Family
DX: R06.02 Shortness of breath (principal); R06.00 Dyspnea, unspecified; R42 Dizziness and giddiness; I10 Essential (primary) hypertension; M79.606 Pain in leg, unspecified; E66.9 Obesity, unspecified; R53.83 Other fatigue; R93.429 Abnormal radiologic findings on diagnostic imaging of unspecified kidney
CPT/HCPCS: 78452; 93017; 93923; A9502; J2785

== ENCOUNTER 2023-01-15 08:01 | Day surgery (SDC) | payer MEDICAID, SELFPAY ==
[2023-01-15] VITALS (17 sets, daily range): BP systolic 71–138; BP diastolic 38–88; PULSE 53–85; RESP 17–20; O2SAT 93–97; BMI 43.9
--- NOTE | 2023-01-15 07:20 | IR_ITS ---
APPROVED REPORT Patient Location: Outpatient Fishing Worker: CHRISTY Bellamy RT (R) PROCEDURES Left heart catheterization Left ventriculogram Selective coronary angiogram Drug-eluting stent deployment to the ramus intermedius SCAI INDICATION Accelerated angina pectoris Abnormal Myoview Coronary artery disease Informed consent was obtained prior to the procedure. COMPLICATIONS None Estimated Blood Loss: Less than 10 mls TECHNIQUE One percent lidocaine used to anesthetize the right anterior aspect of the wrist. The right radial artery was accessed via the Seldinger technique. A 6 Lebanese sheath was placed in the right radial artery. 150 mg magnesium sulfate, 800 mcg of nitroglycerin, 1mg Lidocaine and 5000 U Heparin were given through the arterial sheath. The papa catheter was also used to perform left heart catheterization, left ventriculogram and selective coronary angiogram. At the end of the diagnostic angiogram therapeutic heparin was administered giving a therapeutic ACT and the guide catheter was placed in the left main artery followed by Choice PT extra-support wire into the ramus intermedius. A 2.5 x 22 mm [place] frontier stent was deployed at 16 umesh reducing the critical stenosis to 0%. SAMIA-3 flow was present before and after the procedure. At the end the procedure the apparatus was removed the sheath was removed and hemostasis was achieved using TR banding patient was transferred to the postop holding in stable condition ANGIOGRAPHIC RESULTS The left main artery Normal The left anterior descending artery Initially had SAMIA II flow however flow improved and the vessel was angiographically normal The circumflex artery Dominant vessel gives rise to a large ramus intermedius which has a proximal concentric 90% stenosis followed by 30% stenosis. The rest of the circumflex artery is widely patent The right coronary artery Nondominant artery and normal The [place] ventriculogram reveals Normal 65% The left ventricular end-diastolic pressure 20 mmHg IMPRESSION Severe to critical disease in a large ramus intermedius with successful stenting reducing the stenosis to 0% with 1 drug-eluting stent Elevated LVEDP consistent with diastolic dysfunction PLAN 1. Dual antiplatelet therapy 2. LDL less than 55 to be achieved with high intensity statin 3. Treatment of endothelial dysfunction 4. Avoidance of tobacco products 5. Cardiac rehabilitation Electronically signed by : Stanford Cordero MD 01/15/2023 10:06:50
[2023-01-15 08:42] LABS: Basophils % 0.5 % (0.1-2.0); Eosinophils % 0.5 % (0.1-12.0); Hematocrit 44.6 % (37.0-47.0); Hemoglobin 14.3 g/dL (12.2-16.2); Lymphocytes % 32.2 % (10-50); Mean Corpuscular Hemoglobin 28.1 pg (27.0-31.2); Mean Corpuscular Volume 87.8 fl (81-99); Mean Platelet Volume 8.1 fl (7.4-10.4); Monocytes # 0.5 K/mm3 (0.1-1.0); Monocytes % 8.1 % (1.7-9.3); Neutrophils # 3.7 K/mm3 (1.8-7.8); Neutrophils % 58.8 % (37.0-80.0); Platelet Count 224 K/mm3 (142-424); Red Blood Count 5.08 M/mm3 (4.20-5.40); Red Cell Distribution Width 12.8 % (11.5-17.5); White Blood Count 6.3 K/mm3 (4.8-10.8)
[2023-01-15 08:48] LABS: Chloride 99 mmol/L (98-107); Sodium 138 mmol/L (136-145)
[2023-01-15 08:51] LABS: Blood Urea Nitrogen 14 mg/dl (7-17); Calcium 9.3 mg/dl (8.4-10.2); Carbon Dioxide 28 mmol/L (22.0-30.0); Creatinine Clearance Estimated 51 mL/min (50-200); Estimated Glomerular Filt Rate 72 ml/min (>60); GFR (African American) 87 ML/MIN (>60); Glucose 95 mg/dl (74-100)
--- NOTE | 2023-01-15 12:59 | P.CONPHA_ITS ---
PHA Electronic Organ Mechanic Discharge Med Senior Benefits Specialist: Karla Garrett has received discharge medication counseling on the following medications: -ASPIRIN (PATIENT PREVIOUSLY TAKING, NO QUESTIONS) -ATORVASTATIN (PATIENT PREVIOUSLY TAKING, NO QUESTIONS) -PLAVIX (PATIENT PREVIOUSLY TAKING, NO QUESTIONS) -LISINOPRIL (PATIENT PREVIOUSLY TAKING, NO QUESTIONS) -METOPROLOL SUCCINATE (PATIENT PREVIOUSLY TAKING, NO QUESTIONS) PATIENT VERBALIZED NO QUESTIONS AT THIS TIME.
[2023-01-15 13:09] LABS: CATHL Activated Clotting Time 283 SEC (74-125)
== END 2023-01-15 13:50 | disposition home or self-care (01) ==
PROVIDERS: PCP Physician Assistant; Visit Provider Internal Medicine
DX: I25.118 Atherosclerotic heart disease of native coronary artery with other forms of angina pectoris (principal); I10 Essential (primary) hypertension; R94.39 Abnormal result of other cardiovascular function study; E66.9 Obesity, unspecified; Z68.41 Body mass index [BMI] 40.0-44.9, adult; I70.1 Atherosclerosis of renal artery
CPT/HCPCS: 80048; 85025; 85347; 92928; 93458; 99152; C1725; C1769; C1874; C9600; J1644; Q9967

== ENCOUNTER 2023-01-16 23:14 | Emergency (ER) | payer MEDICAID, SELFPAY ==
[2023-01-16 23:16] VITALS: BP 123/67; PULSE 64; RESP 20; TEMP 36.4; O2SAT 98; BMI 42.1
[2023-01-17] VITALS (9 sets, daily range): BP systolic 110–124; BP diastolic 60–63; PULSE 57–84; RESP 16–20; TEMP 36.6; O2SAT 96–99
--- NOTE | 2023-01-17 | CT_ITS ---
PROCEDURE INFORMATION: Exam: CT Head Without Contrast Exam date and time: 01/17/2023 12:06 AM Age: 62 years old Clinical indication: Pain; Patient HX: C/O headache, mild light sensitivity; Additional info: ROBERT TECHNIQUE: Imaging protocol: Computed tomography of the head without contrast. Radiation optimization: All CT scans at this facility use at least one of these dose optimization techniques: automated exposure control; mA and/or kV adjustment per patient size (includes targeted exams where dose is matched to clinical indication); or iterative reconstruction. REPORTING DATA: Count of CT and Cardiac NM exams in prior 12 months: This patient has received 0 known CTs and 0 known cardiac nuclear medicine studies in the 12 months prior to the current study. COMPARISON: No relevant prior studies available. FINDINGS: Brain: No acute infarct. No hemorrhage. Unremarkable white matter for age. No mass effect. Cerebral ventricles: No ventriculomegaly. Paranasal sinuses: No significant inflammation. No fluid levels. Mastoid air cells: Visualized mastoid air cells are well aerated. Bones/joints: Unremarkable. No acute fracture. Soft tissues: Unremarkable. IMPRESSION: No acute intracranial abnormality.
[2023-01-17 00:01] LABS: Basophils % 0.6 % (0.1-2.0); Eosinophils % 0.2 % (0.1-12.0); Hematocrit 43.9 % (37.0-47.0); Hemoglobin 13.9 g/dL (12.2-16.2); Lymphocytes # 1.7 K/mm3 (0.7-4.5); Lymphocytes % 26.5 % (10-50); Mean Corpuscular HGB Conc 31.5 g/dL (31.8-35.4); Mean Corpuscular Hemoglobin 27.9 pg (27.0-31.2); Mean Corpuscular Volume 88.6 fl (81-99); Mean Platelet Volume 8.1 fl (7.4-10.4); Monocytes # 0.4 K/mm3 (0.1-1.0); Monocytes % 6.1 % (1.7-9.3); Neutrophils # 4.3 K/mm3 (1.8-7.8); Neutrophils % 66.6 % (37.0-80.0); Platelet Count 204 K/mm3 (142-424); Red Blood Count 4.96 M/mm3 (4.20-5.40); Red Cell Distribution Width 12.8 % (11.5-17.5); White Blood Count 6.5 K/mm3 (4.8-10.8)
[2023-01-17 00:19] LABS: Alanine Aminotransferase 25 U/L (12-78); Albumin/Globulin Ratio 1.3 (1.1-1.8); Alkaline Phosphatase 93 U/L (38-126); Anion Gap 12.5 mEq/L (5-15); Aspartate Amino Transferase 34 U/L (14-36); Bilirubin,Total 0.3 mg/dl (0.2-1.3); Blood Urea Nitrogen 14 mg/dl (7-17); Calcium 8.9 mg/dl (8.4-10.2); Carbon Dioxide 29 mmol/L (22.0-30.0); Chloride 102 mmol/L (98-107); Creatinine Clearance Estimated 53 mL/min (50-200); Estimated Glomerular Filt Rate 84 ml/min (>60); GFR (African American) 102 ML/MIN (>60); Globulin 3.2 g/dL (1.3-3.2); Glucose 141 mg/dl (74-100); Potassium 4.5 mmoL/L (3.5-5.1); Sodium 139 mmol/L (136-145); Total Protein,Serum 7.2 g/dl (6.3-8.2)
[2023-01-17 00:24] LABS: C-Reactive Protein 5.3 mg/L (0-4)
[2023-01-17 00:39] LABS: Procalcitonin < 0.030 ng/mL (0.0-2.0)
--- NOTE | 2023-01-17 00:59 | HMH.EDHA ---
Discharge Plan Disposition Patient Disposition: Home, Self-Care Chief Complaint: Headache Prescriptions Prescriptions: No Action methadone 10 mg tablet 10 mg PO TID PRN (Reason: BACK AND LEG PAIN) hydrocodone-acetaminophen [[place]] 10-325 mg tablet 1 tab PO DAILY duloxetine 30 mg capsule,delayed release(DR/EC) 30 mg PO DAILY loratadine [Claritin] 10 mg tablet 10 mg PO DAILY Qty: 90 0RF amoxicillin 500 mg capsule 500 mg PO BID 10 Days Qty: 20 0RF levothyroxine 50 mcg tablet See Rx Instructions .ROUTE .COMPLEX Qty: 30 0RF Dose Instruction: TAKE ONE TABLET BY MOUTH ONCE A DAY COMBINED WITH 200 MCG Rx Instructions: TAKE ONE TABLET BY MOUTH ONCE A DAY COMBINED WITH 200 MCG atorvastatin 10 mg tablet 10 mg PO DAILY levothyroxine 50 mcg tablet 50 mcg PO DAILY Rx Instructions: Combined with 200mcg tablet to make 250mcg daily aspirin 81 mg Tablet,Chewable 81 mg PO DAILY Qty: 30 3RF clopidogrel [Plavix] 75 mg tablet 75 mg PO DAILY lisinopril 10 mg tablet See Rx Instructions .ROUTE .COMPLEX Rx Instructions: TAKE ONE TABLET BY MOUTH ONCE A DAY gabapentin [Neurontin] 300 mg capsule 300 mg PO BID metoprolol succinate 25 mg tablet extended release 24 hr See Rx Instructions .ROUTE .COMPLEX Rx Instructions: TAKE ONE TABLET BY MOUTH ONCE A DAY fluticasone propionate [Flonase Allergy Relief] 50 mcg/actuation spray,suspension 1 spray intranasal DAILY Rx Instructions: administer into each nostril Referrals Follow up/Referrals: Vanda Maciel PA [Primary Care Provider] - See instructions Clinical Impressions Clinical Impression: Headache Instructions Patient Instructions: DI for Headache Discharge ED Provider: [facility] (ED)Vasyl Headache HPI General Chief Complaint: Headache Stated Complaint: Heart cath 01/15/23 now with severe ROBERT Time Seen by Provider: 01/17/23 01:00 Mode of Arrival: Ambulatory Source of Information: Patient and Medical Record Limitations: No Limitations Description of Symptoms (Recalled from ER Triage Doc. by RN): Pt had a heart cath yesterday with 1 stent placed, developed a headache lastnight that has worsened throughout the day. Denies any visual changes or weakness, is sensitive to light and sound. History of Present Illness HPI Narrative: acute robert since heart cath worse with cough and different than any prev robert - no focal neuro sx Complaint: headache Onset (ago): day(s) Onset description: gradual Location: diffuse Severity: moderate Quality: aching and different than previous headaches Context: occurred at rest Associated symptoms: none Treatments prior to arrival: acetaminophen, ibuprofen and prescription analgesic Related Data Home Medications Medication Instructions Recorded Confirmed hydrocodone 10 mg-acetaminophen 1 tab PO DAILY BACK/LEG PAIN 10/15/17 12/25/22 325 mg tablet ([place]) methadone 10 mg tablet 10 mg PO TID PRN BACK AND LEG PAIN 10/15/17 12/25/22 duloxetine 30 mg capsule,delayed 30 mg PO DAILY mood 09/19/22 12/25/22 release atorvastatin 10 mg tablet 10 mg PO DAILY Cholesterol 10/30/22 12/25/22 levothyroxine 50 mcg tablet 50 mcg PO DAILY thyroid 10/30/22 12/25/22 clopidogrel 75 mg tablet (Plavix) 75 mg PO DAILY stents 01/15/23 fluticasone propionate 50 1 spray intranasal DAILY \ 01/15/23 mcg/actuation nasal spray,suspension (Flonase Allergy Relief) gabapentin 300 mg capsule 300 mg PO BID Pain 01/15/23 (Neurontin) lisinopril 10 mg tablet See Rx Instructions .Route 01/15/23 .COMPLEX htn metoprolol succinate 25 mg See Rx Instructions .Route 01/15/23 tablet,extended release 24 hr .COMPLEX htn Previous Rx's Medication Instructions Recorded aspirin 81 mg chewable tablet 81 mg PO DAILY #30 tabs 10/30/22 loratadine 10 mg tablet (Claritin) 10 mg PO DAILY allergies #90 tabs 11/02/22 amoxicillin 500 mg capsule 500
[2023-01-17 01:02] LABS: Erythrocyte Sedimentation Rate 21 mm/hr (0-30)
--- NOTE | 2023-01-17 01:35 | CT_ITS ---
PROCEDURE INFORMATION: Exam: CTA Neck With Contrast Exam date and time: 01/17/2023 2:45 AM Age: 62 years old Clinical indication: Pain; Headache; Additional info: Headache, increasing pain when coughing TECHNIQUE: Imaging protocol: Computed tomographic angiography of the neck with contrast. 3D rendering (Not supervised by radiologist): MIP and/or 3D reconstructed images were created by the technologist. Radiation optimization: All CT scans at this facility use at least one of these dose optimization techniques: automated exposure control; mA and/or kV adjustment per patient size (includes targeted exams where dose is matched to clinical indication); or iterative reconstruction. Contrast material: ISOVUE; Contrast volume: 100 ml; Contrast route: INTRAVENOUS (IV); REPORTING DATA: Count of CT and Cardiac NM exams in prior 12 months: This patient has received 0 known CTs and 0 known cardiac nuclear medicine studies in the 12 months prior to the current study. COMPARISON: CT HEAD/BRAIN WO CON 01/17/2023 12:06 AM FINDINGS: Right common carotid artery: Patent enhancing right common carotid artery. No significant stenosis. No dissection or occlusion. Right internal carotid artery: No acute abnormality. Minimal plaque along the right carotid bulb. Extracranial segment is patent without stenosis. No dissection or occlusion. Right external carotid artery: Patent enhancing right external carotid artery. No occlusion or significant stenosis. Left common carotid artery: Patent enhancing left common carotid artery. No significant stenosis. No dissection or occlusion. Left internal carotid artery: No acute abnormality. Mild plaque along the left carotid bulb. Extracranial segment is patent without stenosis. No dissection or occlusion. Left external carotid artery: Patent enhancing left external carotid artery. No occlusion or significant stenosis. Right vertebral artery: Patent enhancing dominant right vertebral artery without significant stenosis. No dissection or occlusion. Left vertebral artery: Patent enhancing small caliber nondominant left vertebral artery without significant stenosis. No dissection or occlusion. Soft tissues: No significant soft tissue abnormalities. Bones/joints: Cervical spondylosis and degenerative bony changes. IMPRESSION: No evidence of significant carotid or vertebral arterial vascular disease at this time. REFERENCES: NASCET CRITERIA. The degree of stenosis in the cervical segment of the internal carotid artery is based on NASCET criteria. Normal is no stenosis. Mild is less than 50% stenosis. Moderate is 50-69% stenosis. Severe is 70% to 99% stenosis. Total occlusion is no detectable patent lumen.
--- NOTE | 2023-01-17 01:35 | CT_ITS ---
PROCEDURE INFORMATION: Exam: CTA Head With Contrast, Arteriography Exam date and time: 01/17/2023 2:45 AM Age: 62 years old Clinical indication: Pain; Headache; Additional info: Headache, increasing pain when coughing TECHNIQUE: Imaging protocol: Computed tomographic angiography of the head with contrast. Exam focused on the arteries. 3D rendering (Not supervised by radiologist): MIP and/or 3D reconstructed images were created by the technologist. Radiation optimization: All CT scans at this facility use at least one of these dose optimization techniques: automated exposure control; mA and/or kV adjustment per patient size (includes targeted exams where dose is matched to clinical indication); or iterative reconstruction. Contrast material: ISOVUE; Contrast volume: 100 ml; Contrast route: INTRAVENOUS (IV); REPORTING DATA: Count of CT and Cardiac NM exams in prior 12 months: This patient has received 0 known CTs and 0 known cardiac nuclear medicine studies in the 12 months prior to the current study. COMPARISON: CT HEAD/BRAIN WO CON 01/17/2023 12:06 AM FINDINGS: ANTERIOR CIRCULATION: Right internal carotid artery: Intracranial segment is patent with no significant stenosis. No aneurysm. Right middle cerebral artery: No occlusion or significant stenosis. No aneurysm. Right anterior cerebral artery: Anatomic variant hypoplastic right A1 segment with the right anterior cerebral artery filling from the left via the anterior communicating artery. No occlusion or significant stenosis. No aneurysm. Left internal carotid artery: Intracranial segment is patent with no significant stenosis. No aneurysm. Left middle cerebral artery: No occlusion or significant stenosis. No aneurysm. Left anterior cerebral artery: No occlusion or significant stenosis. No aneurysm. POSTERIOR CIRCULATION: Right vertebral artery: No occlusion or significant stenosis. No aneurysm. Left vertebral artery: No occlusion or significant stenosis. No aneurysm. Basilar artery: No occlusion or significant stenosis. No aneurysm. Right posterior cerebral artery: Anatomic variant right persistent circulation with hypoplastic right posterior cerebral artery P1 segment and right posterior cerebral artery filling via the anterior circulation. No occlusion or significant stenosis. No aneurysm. Left posterior cerebral artery: No occlusion or significant stenosis. No aneurysm. Brain: No acute abnormality. No edema, mass effect, or midline shift. Cerebral ventricles: No acute abnormality. No ventriculomegaly. Bones/joints: Unremarkable. No acute fracture. Soft tissues: No significant soft tissue abnormalities. IMPRESSION: No evidence of significant intracranial vascular disease or acute vessel occlusion.
--- NOTE | 2023-01-17 01:45 | PC.NURSE ---
would like to hold off on the CTA head & neck at this time. [facility].
== END 2023-01-17 06:45 | disposition home or self-care (01) ==
PROVIDERS: Emergency Provider Emergency Medicine; PCP Physician Assistant
DX: R51.9 Headache, unspecified (principal); G89.18 Other acute postprocedural pain; I20.9 Angina pectoris, unspecified; F41.9 Anxiety disorder, unspecified; F32.A Depression, unspecified; E78.5 Hyperlipidemia, unspecified; E03.9 Hypothyroidism, unspecified; I73.9 Peripheral vascular disease, unspecified; I70.1 Atherosclerosis of renal artery
CPT/HCPCS: 70450; 70496; 70498; 80053; 84145; 85025; 85651; 86140; 96361; 96374; 96375; 99284; 99285; J0131; Q9967

== ENCOUNTER → 2023-03-22 16:49 | Outpatient (CLI) | payer MEDICAID, SELFPAY ==
[2023-03-22 13:11] LABS: Basophils % 0.2 % (0.1-2.0); Hematocrit 42.4 % (37.0-47.0); Hemoglobin 13.6 g/dL (12.2-16.2); Lymphocytes # 1.9 K/mm3 (0.7-4.5); Lymphocytes % 37.5 % (10-50); Mean Corpuscular HGB Conc 32.1 g/dL (31.8-35.4); Mean Corpuscular Hemoglobin 28.5 pg (27.0-31.2); Mean Corpuscular Volume 88.7 fl (81-99); Mean Platelet Volume 8.7 fl (7.4-10.4); Monocytes # 0.4 K/mm3 (0.1-1.0); Monocytes % 8.3 % (1.7-9.3); Neutrophils # 2.7 K/mm3 (1.8-7.8); Platelet Count 203 K/mm3 (142-424); Red Blood Count 4.78 M/mm3 (4.20-5.40); Red Cell Distribution Width 13.4 % (11.5-17.5); White Blood Count 4.9 K/mm3 (4.8-10.8)
[2023-03-22 13:41] LABS: Alanine Aminotransferase 21 U/L (12-78); Albumin Level 3.9 g/dl (3.5-5.0); Albumin/Globulin Ratio 1.3 (1.1-1.8); Alkaline Phosphatase 93 U/L (38-126); Anion Gap 14.4 mEq/L (5-15); Aspartate Amino Transferase 29 U/L (14-36); Bilirubin,Total 0.4 mg/dl (0.2-1.3); Blood Urea Nitrogen 15 mg/dl (7-17); Calcium 9.4 mg/dl (8.4-10.2); Carbon Dioxide 27 mmol/L (22.0-30.0); Chloride 101 mmol/L (98-107); Chol/HDL Ratio 3.5 (1-3.5); Cholesterol 126 mg/dl (140-200); Estimated Glomerular Filt Rate 72 ml/min (>60); GFR (African American) 87 ML/MIN (>60); Glucose 95 mg/dl (74-100); HDL Cholesterol 36 mg/dl (40-60); Iron 85 ug/dL (37-170); Potassium 4.4 mmoL/L (3.5-5.1); Sodium 138 mmol/L (136-145); Total Protein,Serum 6.9 g/dl (6.3-8.2); Triglycerides 112 mg/dl (30-150); VLDL Cholesterol 22 mg/dL (0-40)
[2023-03-22 13:55] LABS: 25-OH Vitamin D, Total 43.7 ng/mL (30-100)
[2023-03-22 14:12] LABS: Total Iron Binding Capacity 333 ug/dL (265-497)
[2023-03-22 14:35] LABS: Ferritin 54.3 ng/ml (11.1-264)
[2023-03-22 16:08] LABS: Direct LDL Cholesterol 67.8 mg/dL (100-129)
[2023-03-22 17:31] LABS: Thyroid Stimulating Hormone < 0.02 uIU/mL (0.465-4.68)
== END ==
PROVIDERS: PCP Physician Assistant; Visit Provider Physician Assistant
DX: L29.9 Pruritus, unspecified (principal); E66.9 Obesity, unspecified; Z68.41 Body mass index [BMI] 40.0-44.9, adult; Z79.899 Other long term (current) drug therapy
CPT/HCPCS: 80053; 80061; 82306; 82728; 83540; 83550; 84443; 85025

== ENCOUNTER → 2023-03-29 13:24 | Outpatient (CLI) | payer MEDICAID, SELFPAY ==
--- NOTE | 2023-03-29 13:34 | CA_ITS ---
APPROVED REPORT EXAM: Comprehensive 2D, Doppler, and color-flow Echocardiogram [employer] Supervisor: Mitali Escobar RVT Ht: 5 ft 6 in Wt: 264lbs BSA: 2.25 BP: 131/69 mmHg Indications: CP,SOA,EDEMA,HTN,HLD,CAD 2D Dimensions LVOT 1.98 cm (M/F) 1.5-2.5 LA Volume 64.50 mL LA Volume Index 28.67 mL/m2 (M/F) 16-34 M-Mode Dimensions RVDd 3.61 cm (0.9-2.6) LA Diam 3.47 cm (1.9-4.0) LVDd 5.09 cm (3.5-5.7) Ao Diam 3.14 cm (2.0-3.7) LVDs 2.93 cm (3.5-5.7) IVSd 0.89 cm (0.6-1.1) PWd 0.76 cm (0.6-1.1) EF (Teich) 73.20% FS 42.40% EDV (Teich) 123.20 mL TAPSE 2.29 (<1.7) ESV (Teich) 33.00 mL LV Diastology E Decel Time 197.00 (160-240 msec) E/A Ratio 0.8 MED E' 6.60 (< 7 cm/sec) E'/MED E' Ratio 13.67 (>14) LAT E' 9.40 (<10 cm/sec) E/LAT E' Ratio 9.60 (>14) Aortic Valve AO Peak GR. 9.70 mmHg Mitral Valve MV E Max Yann. 90.00 (40-130 cm/s) MV A Velocity 108.00 (40-130 cm/s) E/A Ratio 0.83 MV Decel. Time 197.00 (160-240 ms) MV PHT 58.00 ms Pulmonary Valve PV Peak Velocity 86.00 (50-150 cm/s) Tricuspid Valve TR P. Velocity 347.00 cm/s RAP Estimate 10.00 mmHg RVSP 58.10 mmHg Left Ventricle The left ventricle is normal size. The left ventricular systolic function is normal. The left ventricular ejection fraction is within the normal range. There is normal left ventricular wall thickness. There is normal LV segmental wall motion. The left ventricular diastolic function is normal. LVEF is 55-60%. Right Ventricle Right ventricle is mildly dilated. The right ventricular systolic function is normal. Atria The left atrium size is normal. The right atrium size is normal. There is no Doppler evidence of interatrial shunt. Aortic Valve The aortic valve is mildly thickened. There is no aortic valvular stenosis. Trace aortic regurgitation. Mitral Valve The mitral valve is normal in structure. No evidence of mitral valve stenosis. Trace mitral regurgitation. Tricuspid Valve The tricuspid valve leaflets are thin and pliable. Mild tricuspid regurgitation. RVSP is 30-35 mmHg. Pulmonic Valve The pulmonary valve is normal in structure. Trace pulmonic regurgitation. Great Vessels The aortic root is normal in size. The ascending aorta is normal in size. IVC is normal in size and collapses >50% with inspiration. Pericardium There is no pericardial effusion. Other Information Study Quality: Fair Conclusion Normal biventricular systolic function. Mild RV dilation. No significant valvular disease. Electronically signed by : Trudy Goodman, 04/03/2023 19:41:51
== END ==
PROVIDERS: PCP Physician Assistant; Visit Provider Nurse Practitioner
DX: R06.02 Shortness of breath (principal); I25.10 Atherosclerotic heart disease of native coronary artery without angina pectoris; I10 Essential (primary) hypertension; I73.9 Peripheral vascular disease, unspecified; I70.1 Atherosclerosis of renal artery; R60.0 Localized edema; E78.5 Hyperlipidemia, unspecified; R53.83 Other fatigue; E66.9 Obesity, unspecified; Z68.41 Body mass index [BMI] 40.0-44.9, adult
CPT/HCPCS: 93306

== ENCOUNTER 2023-09-23 15:26 | Emergency (ER) | payer MEDICARE, MEDICAID, SELFPAY ==
[2023-09-23] VITALS (7 sets, daily range): BP systolic 137–160; BP diastolic 64–85; PULSE 75–101; RESP 17–20; TEMP 37.6–38.3; O2SAT 92–97; BMI 44.0
--- NOTE | 2023-09-23 15:36 | ECG_ITS ---
APPROVED REPORT Exam: Resting ECG HR:81 bpm ECG Measurements Heart Rate 81 AXES WV 115 P 57 QRSd 94 QRS 47 QT 349 T 81 QTc 386 Conclusion SINUS RHYTHM WITH SINUS ARRHYTHMIA WITH SHORT WV INTERVAL No ST elevation in anatomical contiguous leads Electronically signed by : KELY DELGADO, 09/23/2023 23:11:51
--- NOTE | 2023-09-23 15:40 | XR_ITS ---
PROCEDURE INFORMATION: Exam: XR Chest Exam date and time: 09/23/2023 3:38 PM Age: 63 years old Clinical indication: Cough; Additional info: Cough/b/l rhonchi TECHNIQUE: Imaging protocol: Radiologic exam of the chest. Views: 2 views. COMPARISON: CT ANGIO NECK 01/17/2023 2:45 AM FINDINGS: Lungs: There is right middle lobe pneumonia with moderate volume loss on the lateral view. Blurring of the right heart border is noted on the AP view. Pleural spaces: There are no pleural effusions present. Heart/Mediastinum: There are multiple small calcified lymph nodules in the mediastinum, consistent with remote granulomatous organism exposure. Bones/joints: Unremarkable. IMPRESSION: 1. There is right middle lobe pneumonia with moderate volume loss on the lateral view. Blurring of the right heart border is noted on the AP view. 2. There are no pleural effusions present.
--- NOTE | 2023-09-23 15:42 | HMH.EDCP ---
Discharge Plan Disposition Patient Disposition: Home, Self-Care Prescriptions Prescriptions: New cefdinir 300 mg capsule 300 mg PO BID 7 Days Qty: 14 0RF azithromycin [Zithromax Z-Hussain] 250 mg tablet 250 mg PO DAILY 4 Days Qty: 4 0RF Rx Instructions: start on day 2 of therapy albuterol sulfate 90 mcg/actuation HFA aerosol inhaler 3 inh inhalation Q3H PRN (Reason: shortness of breath or wheezing) Qty: 6.7 0RF Rx Instructions: until breathing returns to target peak flow/parameters No Action methadone 10 mg tablet 10 mg PO TID PRN (Reason: BACK AND LEG PAIN) hydrocodone-acetaminophen [[place]] 10-325 mg tablet 1 tab PO DAILY duloxetine 30 mg capsule,delayed release(DR/EC) 30 mg PO DAILY metoprolol succinate 25 mg tablet extended release 24 hr See Rx Instructions .ROUTE .COMPLEX Qty: 90 3RF Dose Instruction: TAKE ONE TABLET BY MOUTH ONCE A DAY Rx Instructions: TAKE ONE TABLET BY MOUTH ONCE A DAY lisinopril 10 mg tablet See Rx Instructions .ROUTE .COMPLEX Qty: 90 3RF Dose Instruction: TAKE ONE TABLET BY MOUTH ONCE A DAY Rx Instructions: TAKE ONE TABLET BY MOUTH ONCE A DAY levothyroxine 25 mcg tablet 25 mcg PO DAILY Qty: 90 3RF levothyroxine 200 mcg tablet 200 mcg PO DAILY Qty: 90 3RF Rx Instructions: Take 1 tablet QAM with 25mcg tablet to make dose of 225mcg. clobetasol 0.05 % shampoo See Rx Instructions .ROUTE .COMPLEX Qty: 118 2RF Dose Instruction: APPLY TO SCALP DAILY NEEDED Rx Instructions: APPLY TO SCALP DAILY NEEDED clopidogrel 75 mg tablet See Rx Instructions .ROUTE .COMPLEX Qty: 90 4RF Dose Instruction: TAKE ONE TABLET BY MOUTH ONCE A DAY Rx Instructions: TAKE ONE TABLET BY MOUTH ONCE A DAY aspirin 81 mg tablet,chewable See Rx Instructions .ROUTE .COMPLEX Qty: 90 4RF Dose Instruction: CHEW AND SWALLOW 1 TABLET ONCE A DAY Rx Instructions: CHEW AND SWALLOW 1 TABLET ONCE A DAY hydroxyzine HCl 25 mg tablet See Rx Instructions .ROUTE .COMPLEX Qty: 90 3RF Dose Instruction: TAKE ONE TABLET BY MOUTH 3 TIMES A DAY NEEDED FOR ITCHING Rx Instructions: TAKE ONE TABLET BY MOUTH 3 TIMES A DAY NEEDED FOR ITCHING loratadine 10 mg tablet See Rx Instructions .ROUTE .COMPLEX Qty: 90 3RF Dose Instruction: TAKE ONE TABLET BY MOUTH ONCE A DAY FOR ALLERGIES Rx Instructions: TAKE ONE TABLET BY MOUTH ONCE A DAY FOR ALLERGIES furosemide [Lasix] 20 mg tablet 20 mg PO DAILY Qty: 30 3RF atorvastatin 10 mg tablet See Rx Instructions .ROUTE .COMPLEX Qty: 30 0RF Dose Instruction: TAKE ONE TABLET BY MOUTH ONCE A DAY Rx Instructions: TAKE ONE TABLET BY MOUTH ONCE A DAY fluticasone propionate [Flonase Allergy Relief] 50 mcg/actuation spray,suspension 1 spray intranasal DAILY Rx Instructions: administer into each nostril gabapentin [Neurontin] 300 mg capsule 400 mg PO BID Referrals Follow up/Referrals: Vanda Maciel PA [Primary Care Provider] - See instructions Activity Restrictions/Add. Instructions Additional Instructions/Restrictions: At this time it was felt you are safe to be discharged home. If new or worsening symptoms please do not hesitate to return the emergency department. Please take your medications as prescribed and follow-up with your family doctor on Sunday as discussed. 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 Onset was acute, over the last few days, she feels as if her lungs are making a boiling noise . Due to persistent symptoms she presents here for continued evaluation. Denies chest pain, abdominal pain, diarrhea, dysuria. Last menstrual period approximately 10 years ago. Related Data Home Medications Medication Instructions Recorded Confirmed hydrocodone 10 mg-acetaminophen 1 tab PO DAILY BACK/LEG PAIN 10/15/17 04/17/23 325 mg tablet ([place]) methadone 10 mg tablet 10 mg PO TID PRN BACK AND LEG PAIN 10/15/17 04/17/23 duloxetine 30 mg capsule,delayed 30 mg PO DAILY mood 09/19/22 04/17/23 release fluticasone propionate 50 1 spray intranasal DAILY \ 01/15/23 04/17/23 mcg/actuation nasal spray,suspension (Flonase Allergy Relief) gabapentin 300 mg capsule 400 mg PO BID Pain 04/17/23 04/17/23 (Neurontin) Previous Rx's Medication Instructions Recorded lisinopril 10 mg tablet See Rx Instructions .Route 03/22/23 .COMPLEX #90 tabs metoprolol succinate 25 mg See Rx Instructions .Route 03/22/23 tablet,extended release 24 hr .COMPLEX #90 tabs levothyroxine 200 mcg tablet 200 mcg PO DAILY #90 tabs 03/27/23 levothyroxine 25 mcg tablet 25 mcg PO DAILY #90 tabs 03/27/23 aspirin 81 mg chewable tablet See Rx Instructions .Route 04/17/23 .COMPLEX #90 tabs clobetasol 0.05 % shampoo See Rx Instructions .Route 04/17/23 .COMPLEX #118 mL clopidogrel 75 mg tablet See Rx Instructions .Route 04/17/23 .COMPLEX #90 tabs hydroxyzine HCl 25 mg tablet See Rx Instructions .Route 06/18/23 .COMPLEX #90 tabs loratadine 10 mg tablet See Rx Instructions .Route 07/19/23 .COMPLEX #90 tabs furosemide 20 mg tablet (Lasix) 20 mg PO DAILY #30 tabs 08/16/23 atorvastatin 10 mg tablet See Rx Instructions .Route 09/14/23 .COMPLEX #30 tabs albuterol sulfate 90 mcg/actuation 3 inh inhalation Q3H PRN shortness 09/23/23 aerosol inhaler of breath or wheezing #6.7 grams azithromycin 250 mg tablet 250 mg PO DAILY 4 days #4 tabs 09/23/23 (Zithromax Z-Hussain) cefdinir 300 mg capsule 300 mg PO BID 7 days #14 caps 09/23/23 Allergies Allergy/AdvReac Type Severity Reaction Status Date / Time morphine Allergy Verified 04/17/23 14:01 [facility] Disclaimer: The information contained in this section may have been updated after the patient was seen, as this information can be updated by other users. Medical History Abnormal cardiovascular stress test Abnormal renal ultrasound Anxiety Atypical angina Depression Dizziness Dyspnea Environmental allergies Exposure to mold Fatigue Hyperlipidemia Hypothyroidism Leg pain PAD (peripheral artery disease) Renal artery stenosis Surgical History H/O tubal ligation Hx of tonsillectomy Family History Other No significant family history Social History Smoking Status: Never smoker alcohol intake: never substance use type: denies use current occupational status: other Travel in the last 8 weeks: None ROS Obtained: Yes Systems reviewed as appropriate & no additional complaints except as documented Physical Exam General General appearance: alert and in no apparent distress Head Head exam: atraumatic and normocephalic Eye Eye exam: Present PERRL ENT ENT exam: Present mucous membranes moist and other (Rhinorrhea) Neck Neck exam: Present normal inspection Chest Chest inspection: Present normal inspection and symmetric chest wall rise Respiratory Respiratory exam: Present other (Bilateral rhonchi); Absent respiratory distress Cardiovascular Cardiovascular exam: Present regular rate and normal rhythm Abdominal Exam Abdominal exam: Present soft; Absent tenderness Extremities Exam Extremities exam: Present normal inspection Neurological Exam Neurological exam: Present alert Psychiatric Psychiatric exam: Present normal affect Skin Skin exam: Present warm and dry HEART Score HEART Score HEART Score assessment performed?: Yes History (anamnesis): Slightly suspicious ECG: Normal Age: 45-65 years Risk factors: 1-2 risk factors Troponin: </= normal limit HEART Score: 2 Critical Care Critical Care Time Critical Care Time: No Medical Decision Making Mitch Inquiry Pt receiving controlled substance: No Vital Signs Vital Signs: 09/23/23 15:41 09/23/23 15:37 09/23/23 16:14 Temperature 101 F H Temperature Source Oral Pulse Rate 92 H 101 H Pulse Rate [Left] 88 Respiratory Rate 20 Blood Pressure 160/85 H 144/74 H Blood Pressure [Right Arm] 160/85 H Blood Pressure Mean [Right Arm] 110 Blood Pressure Source [Right Arm] Automatic Cuff Blood Pressure Position [Right Arm] Sitting 02 Sat by Pulse Oximetry 97 97 95 Oxygen Delivery Method Room Air Room Air Room Air 09/23/23 16:31 09/23/23 17:00 Temperature Temperature Source Pulse Rate 87 79 Pulse Rate [Left] Respiratory Rate Blood Pressure 139/64 137/67 Blood Pressure [Right Arm] Blood Pressure Mean [Right Arm] Blood Pressure Source [Right Arm] Blood Pressure Position [Right Arm] 02 Sat by Pulse Oximetry 93 L 92 L Oxygen Delivery Method Room Air Room Air Lab Data Labs: Lab Results 09/23/23 15:45: WBC 14.6 H, RBC 4.43, Hgb 13.5, Hct 42.5, MCV 95.9, MCH 30.5, MCHC 31.8, RDW 12.9, Plt Count 300, MPV 8.3, Neut % (Auto) 83.2 H, Lymph % (Auto) 11.1, [place] % (Auto) 4.7, Eos % (Auto) 0.4, Baso % (Auto) 0.6, Neut # (Auto) 12.1 H, Lymph # (Auto) 1.6, [place] # (Auto) 0.7, Eos # (Auto) 0.1, Baso # (Auto) 0.1, Sodium 134 L, Potassium 5.0, Chloride 99, Carbon Dioxide 28, Anion Gap 12.0, BUN 7, Creatinine 0.70, Estimated Creat Clear 53, Estimated GFR 84, Est GFR ( Amer) 102, Glucose 142 H, Calcium 8.6, Total Bilirubin 1.2, AST 106 H, ALT 73, Alkaline Phosphatase 154 H, Troponin I < 0.01, Total Protein 8.0, Albumin 3.8, Globulin 4.2 H, Albumin/Globulin Ratio 0.9 L 09/23/23 15:50: SARS-CoV-2 (PCR) Not detected, Influenza A Untype (PCR) Not detected, Influenza Type B (PCR) Not detected 09/23/23 15:45 09/23/23 15:45 Response Orders (Tests/Meds): ED MEDICATIONS Generic Name Dose Route Start Last Admin Trade Name Freq PRN Reason Stop Dose Admin Azithromycin 500 mg 09/23/23 17:23 09/23/23 17:25 Azithromycin 250mg Tablet PO 09/23/23 17:24 500 mg ONCE ONE Administration Ceftriaxone Sodium 1 gm/ 50 mls @ 100 mls/hr 09/23/23 17:30 09/23/23 17:26 Sodium Chloride IV 10/03/23 17:29 100 mls/hr Q12H SHAHLA Administration Discontinued Medications Generic Name Dose Route Start Last Admin Trade Name Freq PRN Reason Stop Dose Admin Acetaminophen 1,000 mg 09/23/23 16:34 09/23/23 16:42 Acetaminophen 500mg Tab PO 09/23/23 16:35 1,000 mg ONCE ONE Administration Albuterol/Ipratropium 3 ml 09/23/23 15:40 09/23/23 15:59 Ipratropium/Albuterol 3 Ml Neb IH 09/23/23 15:41 3 ml ONCE ONE Administration ORDERS Category Date Time Status CXR 2 view (NOT portable) [XR chest 2V] Stat Exams 09/23/23 15:40 Completed CBC w/Auto Diff [Complete Blood Count Auto Diff] Stat Lab 09/23/23 15:45 Completed CMP [Comprehensive Metabolic Panel] Stat Lab 09/23/23 15:45 Completed Rapid PCR Covid and Flu A/B Stat Lab 09/23/23 15:50 Completed Trop I [Troponin I] Stat Lab 09/23/23 15:45 Completed Troponin I Q3H Lab 09/23/23 18:45 Ordered Troponin I Q3H Lab 09/23/23 21:45 Ordered ECG Data Tracing #1: ECG Narrative: Independently interpreted by me, rate is 81, rhythm is regular, axis is normal, no ST elevation in anatomical contiguous leads, QTc 386. MDM Narrative Medical Decision Narrative: In summary patient is a 63-year-old female with past medical history described above who presents emergency department for evaluation of shortness of breath and cough. Patient is hemodynamically stable nontoxic-appearing upon arrival, febrile temperature 101 ?F. Differential diagnosis includes pneumonia, bronchitis, atypical ACS which is less likely, among others. Workup will be conducted with hematologic labs, chest x-ray two-view, EKG, troponin, viral swab. Initial inventions include DuoNeb. Workup reviewed by me, hematologic labs are nonactionable, patient has leukocytosis, initial troponin undetectably low, no WILFREDO or critical electrolyte abnormality. Chest x-ray informally interpreted by me, right middle lobe and right lower lobe pneumonia for which 1 g of ceftriaxone IV and oral azithromycin will be administered. Viral swab negative. Formal read shows right middle lobe pneumonia with volume loss, no pleural effusion. Upon repeat evaluation patient was well-appearing, no oxygen requirement, no significant tachycardia. Given this patient is appropriate for outpatient management at this time will be discharged with a course of cefdinir and azithromycin and was given multiple return precautions and verbalized understanding. Patient will follow-up with PCP on Sunday for continued evaluation.
[2023-09-23] MEDS: IPRATROPIUM/ALBUTEROL 3 ML NEB IH (15:59)
[2023-09-23 16:05] LABS: Coronavirus 19, PCR Not Detected (NotDetected); Influenza A, PCR Not Detected (NotDetected); Influenza B, PCR Not Detected (NotDetected)
[2023-09-23 16:11] LABS: Basophils # 0.1 K/mm3 (0-0.2); Basophils % 0.6 % (0.1-2.0); Eosinophils # 0.1 K/mm3 (0.0-0.4); Eosinophils % 0.4 % (0.1-12.0); Hematocrit 42.5 % (37.0-47.0); Hemoglobin 13.5 g/dL (12.2-16.2); Lymphocytes # 1.6 K/mm3 (0.7-4.5); Lymphocytes % 11.1 % (10-50); Mean Corpuscular HGB Conc 31.8 g/dL (31.8-35.4); Mean Corpuscular Hemoglobin 30.5 pg (27.0-31.2); Mean Corpuscular Volume 95.9 fl (81-99); Mean Platelet Volume 8.3 fl (7.4-10.4); Monocytes # 0.7 K/mm3 (0.1-1.0); Monocytes % 4.7 % (1.7-9.3); Neutrophils # 12.1 K/mm3 (1.8-7.8); Neutrophils % 83.2 % (37.0-80.0); Platelet Count 300 K/mm3 (142-424); Red Blood Count 4.43 M/mm3 (4.20-5.40); Red Cell Distribution Width 12.9 % (11.5-17.5); White Blood Count 14.6 K/mm3 (4.8-10.8)
[2023-09-23 16:16] LABS: Alanine Aminotransferase 73 U/L (12-78); Albumin Level 3.8 g/dl (3.5-5.0); Albumin/Globulin Ratio 0.9 (1.1-1.8); Alkaline Phosphatase 154 U/L (38-126); Aspartate Amino Transferase 106 U/L (14-36); Bilirubin,Total 1.2 mg/dl (0.2-1.3); Blood Urea Nitrogen 7 mg/dl (7-17); Calcium 8.6 mg/dl (8.4-10.2); Carbon Dioxide 28 mmol/L (22.0-30.0); Chloride 99 mmol/L (98-107); Creatinine Clearance Estimated 53 mL/min (50-200); Estimated Glomerular Filt Rate 84 ml/min (>60); GFR (African American) 102 ML/MIN (>60); Globulin 4.2 g/dL (1.3-3.2); Glucose 142 mg/dl (74-100); Sodium 134 mmol/L (136-145)
[2023-09-23 16:31] LABS: Troponin I < 0.01 ng/ml (0.00-0.034)
[2023-09-23] MEDS: ACETAMINOPHEN 500MG TAB 1000 MG PO (16:42)
[2023-09-23] MEDS: AZITHROMYCIN 250MG TABLET 500 MG PO (17:25)
[2023-09-23] MEDS: CEFTRIAXONE 1 GM 1 GM in 0.9 % SODIUM CHLORIDE 50 ML IV (17:26)
== END 2023-09-23 17:44 | disposition home or self-care (01) ==
PROVIDERS: Emergency Provider Emergency Medicine; PCP Physician Assistant
DX: J18.9 Pneumonia, unspecified organism (principal); H66.91 Otitis media, unspecified, right ear; R06.02 Shortness of breath; R05.8 Other specified cough; I73.9 Peripheral vascular disease, unspecified; E03.9 Hypothyroidism, unspecified; I10 Essential (primary) hypertension; E78.5 Hyperlipidemia, unspecified
CPT/HCPCS: 71046; 80053; 84484; 85025; 87636; 93005; 96365; 99284; J0696

== ENCOUNTER 2023-12-03 10:02 | Outpatient (CLI) | payer MEDICARE, MEDICAID, SELFPAY ==
[2023-12-03 19:44] LABS: Basophils % 0.5 % (0.1-2.0); Eosinophils % 0.1 % (0.1-12.0); Hematocrit 40.3 % (37.0-47.0); Hemoglobin 13.3 g/dL (12.2-16.2); Lymphocytes % 36.1 % (10-50); Mean Corpuscular HGB Conc 33.1 g/dL (31.8-35.4); Mean Corpuscular Hemoglobin 30.5 pg (27.0-31.2); Mean Corpuscular Volume 92.1 fl (81-99); Monocytes # 0.4 K/mm3 (0.1-1.0); Monocytes % 6.7 % (1.7-9.3); Neutrophils # 3.2 K/mm3 (1.8-7.8); Neutrophils % 56.5 % (37.0-80.0); Platelet Count 186 K/mm3 (142-424); Red Blood Count 4.37 M/mm3 (4.20-5.40); White Blood Count 5.6 K/mm3 (4.8-10.8)
[2023-12-03 19:46] LABS: Alanine Aminotransferase 23 U/L (12-78); Alkaline Phosphatase 88 U/L (38-126); Aspartate Amino Transferase 40 U/L (14-36); Bilirubin,Direct 0.2 mg/dl (0.0-0.4); Bilirubin,Indirect 0.3 mg/dL (0.0-0.9); Bilirubin,Total 0.5 mg/dl (0.2-1.3); Bilirubin,Unconjugated 0.3 mg/dL (0.0-1.1); Total Protein,Serum 6.9 g/dl (6.3-8.2)
[2023-12-03 20:01] LABS: Free Thyroxine Index 2.4 ug/dL (5.93-13.13); T4 (Thyroxine) 8.2 ug/dl (5.53-11.0); Triiodothryronine (T3) Uptake 29 % (23.5-40.5)
[2023-12-03 20:15] LABS: Thyroid Stimulating Hormone 9.99 uIU/mL (0.465-4.68)
[2023-12-03 20:49] LABS: Hemoglobin A1C 5.9 % (4.0-6.0)
== END 2023-12-03 23:59 | disposition home or self-care (01) ==
LOC: LAB.DROPOF 12-05 10:03
PROVIDERS: Visit Provider Family Medicine
DX: R73.03 Prediabetes (principal); E78.2 Mixed hyperlipidemia
CPT/HCPCS: 80076; 83036; 84436; 84443; 84479; 85025

== ENCOUNTER 2024-03-03 13:00 | Outpatient (CLI) | payer MEDICARE, MEDICAID, SELFPAY ==
--- NOTE | 2024-03-03 | MR_ITS ---
FINAL REPORT CLINICAL HISTORY: LBP FINDINGS: Multiplanar MR imaging of the lumbar spine was performed without contrast. On the sagittal T2-weighted images, disc degeneration is seen throughout. There are endplate changes at multiple levels. The vertebral alignment is normal. There is no evidence of fracture. No bony mass is identified. The conus is seen at approximately the L1 level and has an unremarkable appearance. L1-2: Annular disc bulge with facet arthropathy and osteophytes. There is mild right and moderate left neuroforaminal narrowing. There is mild central canal stenosis with AP diameter of the thecal sac measuring 9 mm. L2-3: Annular disc bulge with facet arthropathy and osteophytes. There is mild right and severe left neuroforaminal narrowing. There is a left foraminal disc protrusion with mild central canal stenosis. AP diameter thecal sac measures 8 mm. L3-4: Annular disc bulge with facet arthropathy and osteophytes. There is a small left paracentral disc protrusion with mild bilateral neuroforaminal narrowing. There is mild central canal stenosis with AP diameter of the thecal sac measuring 8 mm. L4-5: Annular disc bulge with facet arthropathy and osteophytes. There is mild bilateral neuroforaminal narrowing. There is a right paracentral disc protrusion with right lateral recess stenosis. L5-S1: Annular disc bulge with facet arthropathy and osteophytes. There is a left foraminal disc protrusion with mild right and moderate left neuroforaminal narrowing. IMPRESSION: Multilevel degenerative disc disease with mild central canal stenosis from L1-2 L3-4. Reviewed, Interpreted and Dictated by Omar Smith III, MD Transcribed by Sherrell Stern Authenticated and [facility]
== END 2024-03-03 23:59 | disposition home or self-care (01) ==
LOC: RAD 13:01
PROVIDERS: PCP Family Medicine; Visit Provider Registered Nurse
DX: M47.896 Other spondylosis, lumbar region (principal)
CPT/HCPCS: 72148

== ENCOUNTER 2024-06-12 11:30 | Outpatient (CLI) | payer MEDICARE, MEDICAID, SELFPAY ==
[2024-06-12 19:50] LABS: 25-OH Vitamin D, Total 32.3 ng/mL (30-100)
[2024-06-12 20:06] LABS: Thyroid Stimulating Hormone 0.63 uIU/mL (0.465-4.68)
[2024-06-12 20:25] LABS: Vitamin B12 874 pg/mL (239-931)
== END 2024-06-12 23:59 | disposition home or self-care (01) ==
LOC: LAB.DROPOF 06-13 07:47
PROVIDERS: PCP Family Medicine; Visit Provider Family Medicine
DX: E56.9 Vitamin deficiency, unspecified (principal); E55.9 Vitamin D deficiency, unspecified; E03.9 Hypothyroidism, unspecified; Z00.00 Encounter for general adult medical examination without abnormal findings; R73.03 Prediabetes
CPT/HCPCS: 82306; 82607; 84443

== ENCOUNTER 2024-12-08 11:20 | Outpatient (CLI) | payer MEDICARE, MEDICAID, SELFPAY ==
[2024-12-08 18:30] LABS: Basophils % 0.4 % (0.1-2.0); Hemoglobin 13.7 g/dL (12.2-16.2); Immature Granulocytes # 0.01 10^3uL; Immature Granulocytes % 0.2 %; Lymphocytes # 1.7 K/mm3 (0.7-4.5); Lymphocytes % 34.5 % (10-50); Mean Corpuscular HGB Conc 32.6 g/dL (31.8-35.4); Mean Corpuscular Hemoglobin 29.8 pg (27.0-31.2); Mean Corpuscular Volume 91.3 fl (81-99); Mean Platelet Volume 10.9 fl (7.4-10.4); Monocytes # 0.5 K/mm3 (0.1-1.0); Monocytes % 9.8 % (1.7-9.3); Neutrophils # 2.7 K/mm3 (1.8-7.8); Neutrophils % 55.1 % (37.0-80.0); Nucleated Red Blood Cells # 0 10^3/uL; Nucleated Red Blood Cells % 0 %; Platelet Count 167 K/mm3 (142-424); Red Cell Distribution Width 12.4 % (11.5-17.5); White Blood Count 4.8 K/mm3 (4.8-10.8)
[2024-12-08 19:55] LABS: Hemoglobin A1C 5.4 % (4.0-6.0)
[2024-12-08 20:41] LABS: Chloride 103 mmol/L (98-107); Potassium 4.3 mmoL/L (3.5-5.1); Sodium 137 mmol/L (136-145)
[2024-12-08 20:43] LABS: Alanine Aminotransferase 22 U/L (12-78); Aspartate Amino Transferase 29 U/L (14-36); Blood Urea Nitrogen 13 mg/dl (7-17); Estimated Glomerular Filt Rate 72 ml/min (>60); GFR (African American) 87 ML/MIN (>60)
[2024-12-08 20:44] LABS: Albumin/Globulin Ratio 1.7 (1.1-1.8); Alkaline Phosphatase 69 U/L (38-126); Anion Gap 9.3 mEq/L (5-15); Bilirubin,Total 0.4 mg/dl (0.2-1.3); Calcium 9.2 mg/dl (8.4-10.2); Carbon Dioxide 29 mmol/L (22.0-30.0); Cholesterol 127 mg/dl (140-200); Globulin 2.4 g/dL (1.3-3.2); Glucose 85 mg/dl (74-100); Total Protein,Serum 6.4 g/dl (6.3-8.2); Triglycerides 120 mg/dl (30-150); VLDL Cholesterol 24 mg/dL (0-40)
[2024-12-08 20:51] LABS: NT Pro Brain Natriuretic Pep. 268 pg/mL (0-125)
[2024-12-08 20:53] LABS: 25-OH Vitamin D, Total 33.4 ng/mL (30-100)
[2024-12-08 21:07] LABS: Direct LDL Cholesterol 57.53 mg/dL (100-129)
[2024-12-08 21:13] LABS: Thyroid Stimulating Hormone 0.47 uIU/mL (0.465-4.68)
[2024-12-08 21:38] LABS: Chol/HDL Ratio 2.9 (1-3.5); HDL Cholesterol 44 mg/dl (40-60)
== END 2024-12-08 23:59 | disposition home or self-care (01) ==
LOC: LAB.DROPOF 20:28
PROVIDERS: PCP Family Medicine; Visit Provider Family Medicine
DX: R73.03 Prediabetes (principal); E56.9 Vitamin deficiency, unspecified; E78.5 Hyperlipidemia, unspecified; E03.9 Hypothyroidism, unspecified; Z68.41 Body mass index [BMI] 40.0-44.9, adult; E66.9 Obesity, unspecified; I11.0 Hypertensive heart disease with heart failure
CPT/HCPCS: 80053; 80061; 82306; 83036; 83880; 84443; 85025

== ENCOUNTER 2025-06-01 06:42 | Outpatient (CLI) | payer MEDICARE, MEDICAID, SELFPAY ==
--- NOTE | 2025-06-01 | CA_ITS ---
APPROVED REPORT Exam: Pharmacologic Technologist: Evita Ugarte Ht: 5 ft 6 in Wt: 265 lbs BSA: 2.25 m2 HR: 64 bpm BP: 141/72 mmHg Indications: Shortness of breath Medical History Cardiac Risk Factors: HTN, Hyperlipidemia Stress Test Details HR Resting HR: 64 bpm Max Heart Rate (APMHR): 154.043639 bpm Target HR (85% APMHR): 130.789273 bpm Recovery HR: 71 bpm BP Resting BP: 141.0/72.0 mmHg Recovery BP: 124.0/54.0 mmHg ECG Stress ECG Conclusion During lexiscan pt experinced no symptoms. PACs noted. Less than 0.5mm upsloping ST segment changes. Nondiagnostic ECG/lexiscan. Electronically signed by : Trudy Goodman MD 06/02/2025 13:11:43
--- OUTSIDE RECORDS SUMMARY | 2025-06-01 06:44 | XMS_ITS | Clinical Summary ---
Author Organization [facility] ([place], [place], [place], [place], [place]) Address [address] [place] [address] Care Team Providers Care Software Release Engineer Name Role Phone Unavailable Primary Care Provider Unavailabl e Allergies Active Allergy Reactions Criticality Noted Date Comments Morphine 05/05/2024 Medications albuterol 90 mcg/actuation inhaler Inhale 1-2 puffs by mouth via inhaler every 6 (six) hours as needed for wheezing. Active aspirin 81 MG chewable tablet Take 1 tablet (81 mg total) by mouth daily. Active atorvastatin (LIPITOR) 10 MG tablet Take 1 tablet (10 mg total) by mouth nightly. Active azelastine (ASTELIN) 137 mcg (0.1 %) nasal spray 1 spray by each nostril route daily Use in each nostril as directed. Active cefdinir (OMNICEF) 300 mg capsule Take 1 capsule (300 mg total) by mouth daily. Active calcium carbonate-vitam in D3 (OSCAL) 250 mg-3.125 mcg (125 unit) tab per tablet Take 1 tablet by mouth daily. Active clopidogreL (PLAVIX) 75 mg tablet Take 1 tablet (75 mg total) by mouth daily Look-alike/ Sound-alike medication. Active furosemide (LASIX) 20 MG tablet Take 1 tablet (20 mg total) by mouth daily. Active gabapentin (NEURONTIN) 400 MG capsule Take 1 capsule (400 mg total) by mouth 2 (two) times daily. Max Daily Amount: 800 mg Active HYDROcodone-rito taminophen (NORCO 10-325) 10-325 mg per tablet Take 1 tablet by mouth every 12 (twelve) hours as needed for pain. Max Daily Amount: 2 tablets Active hydrOXYzine (ATARAX) 25 MG tablet Take 1 tablet (25 mg total) by mouth nightly Look-alike/ Sound-alike medication. Active lidocaine (LIDODERM) 5 % patch Place 1 patch onto the skin daily Remove & Discard patch within 12 hours or as directed by MD. Active lisinopriL (ZESTRIL) 10 MG tablet Take 1 tablet (10 mg total) by mouth daily. Active loratadine (CLARITIN) 10 mg tablet Take 1 tablet (10 mg total) by mouth daily. Active metFORMIN (FORTAMET) 500 MG (OSM) 24 hr tablet Take 1 tablet (500 mg total) by mouth daily with breakfast. Active methadone (DOLOPHINE) 10 MG tablet Take 1 tablet (10 mg total) by mouth every 12 (twelve) hours as needed for pain. Max Daily Amount: 20 mg Active metoprolol succinate (TOPROL-XL) 25 MG 24 hr tablet Take 1 tablet (25 mg total) by mouth daily. Active levothyroxine (SYNTHROID) 175 MCG tablet Take 1 tablet (175 mcg total) by mouth Daily (0600). Active Social History Tobacco Use Types Packs/Day Years Used Date Smoking Tobacco: Never Assessed Food Insecurity Answer Date Recorded Food run out past 12 months Not on file 07/2023 Food did not last past 12 months Not on file 04/22/2024 Employment Answer Date Recorded Help finding and keeping a job Not on file 1 Family and Community Support Answer [place] e Recorded Help with Day to Day Activities Not on file 04/22/2024 Feeling Lonely or Isolated Not on file 04/22 Educational Attainment Answer Date Nicholas rded Speak language other than Mozambican at home Not on file 04/22/2024 Want help with school or training Not on file 04/22/2024 Substance Use Answer Date Recorded Used prescription meds for non-medical reasons N ot on file 04/22/2024 Used illegal drugs past 12 months Not on file 04/22/2024 Comments Unknown Sex and Gender Information Value Date Recorded Sex Assigned at Not on file Legal Sex Female 1:11 PM CDT Gender Identity Not on file Sexual Orientation Not on file Last Filed Vital Signs Vital Sign Reading Time Taken Comments Blood Pressure - - Pulse - - Temperature - - Respiratory Rate - - Oxygen Saturation - - Inhaled Oxygen Concentration - - Weight - - Height 165.1 cm (5' 5 ) 05/05/2024 10:00 AM EDT Body Mass Index - - Plan of Treatment Not on file Insurance [employer] MEDICAID [place]
--- OUTSIDE RECORDS SUMMARY | 2025-06-01 06:44 | XMS_ITS | Referral Summary ---
Author Organization [facility] ([place], [place], [place], [place], [place]) Address [address] [place] [address] Care Team Providers Care District Manager In Training Name Role Phone Unavailable Primary Care Provider [...] Date Nicholas rded Speak language other than Niuean at home Not on file 04/22/2024 Want [...]
--- NOTE | 2025-06-01 07:00 | NM_ITS ---
APPROVED REPORT Exam: Nuclear Stress Test Indication: SOB, HTN, High cholesterol, Family history, CAD Patient Location: Outpatient Stress Tech: Evita LEE Tech:Jacquelyn Hill, ARRT, RT (R)(N) Ht: 5 ft 4 in Wt: 262 lbs Bra Size: 42D HR: 72 bpm BP: 141/72 mmHg BSA: 2.19 m2 TID: 1.43 BMI: 44.9 History: SOB, HTN, High cholesterol, Family history, CAD Procedure: Patient received 0.4 mg of intravenous Lexiscan, resting heart rate 72 bpm, resting blood pressure 141/72 mmHg, with Lexiscan maximum heart rate achieved was 81 bpm which is % of the maximum predicted heart rate and blood pressure was 130/55 mmHg. With Lexiscan, patient denied any complaint of chest pain. Cardiac Stress and Resting SPECT Images: Cardiac Stress and Resting SPECT images were obtained using technetium 99m Myoview 32.2 mCi stress and 10.66 mCi at rest. The patient could not lie on her abdomen. Therefore, prone stress imaging could not be performed. This may affect the diagnostic interpretation of the study findings. Resting and stress imaging in supine positions demonstrate no evidence of fixed or reversible perfusion defects. There is increase in transient ischemic dilatation ratio (TID 1.43), which may be suggestive of possible multivessel disease or balanced ischemia. Gated imaging demonstrates normal global LV systolic function. LVEF is calculated 58%. Conclusion: No evidence of fixed or reversible perfusion defects. There is increase in transient ischemic dilatation ratio (TID 1.43), which may be suggestive of possible multivessel disease or balanced ischemia. Gated imaging demonstrates normal global LV systolic function. LVEF is calculated 58%. Electronically signed by : Trudy Goodman MD 06/02/2025 13:07:31
[2025-06-01 08:15] VITALS: BP 141/72; PULSE 64; RESP 14
[2025-06-01] MEDS: ISOTOPE MYOVIEW (PER STUDY) 1 DOSE IV (08:35)
[2025-06-01] MEDS: SODIUM CHLORIDE 0.9% 10ML SYR (RAD ONLY) 10 ML IV ×2 (08:35)
--- NOTE | 2025-06-01 09:00 | CA_ITS ---
APPROVED REPORT EXAM: Comprehensive 2D, Doppler, and color-flow Echocardiogram Art Therapist: Danielle Montemayor RT(R) Ht: 5 ft 6 in Wt: 265lbs BSA: 2.25 BP: 160/70 mmHg Indications: shortness of breath, atypical angina 2D Dimensions LVEF (David's) 57.50 % F: 54 - 74 LV Volume 119.40 mL F: 46 - 106 LV Volume Index 52.286957 mL/m2 F: 29 - 61 LA Volume 43.10 mL LA Volume Index 19.840975 mL/m2 (M/F) 16-34 EF AP4 61.30 % EF AP2 51.3 % EF BP 57.5 % GL Strain -17.5 % M-Mode Dimensions RVDd 3.37 cm (0.9-2.6) LA Diam 3.71 cm (1.9-4.0) LVDd 3.73 cm (3.5-5.7) LVDs 2.73 cm (3.5-5.7) IVSd 0.88 cm (0.6-1.1) PWd 0.84 cm (0.6-1.1) EF (Teich) 53.10% FS 26.80% EDV (Teich) 59.30 mL ESV (Teich) 27.80 mL LV Diastology E Decel Time 187 (160-240 msec) E/A Ratio 1.3 Mitral Valve MV E Max Yann. 106.0 (40-130 cm/s) MV A Velocity 81.0 (40-130 cm/s) E/A Ratio 1.31 MV PHT 55.0 ms Tricuspid Valve TR P. Velocity 298.00 cm/s Left Ventricle The left ventricle is normal size. Left ventricular systolic function is normal. The left ventricular ejection fraction is within the normal range. There is increased left ventricular wall thickness. There is normal LV segmental wall motion. The left ventricular diastolic function is normal. LVEF is 60% Right Ventricle The right ventricle is normal size. The right ventricular systolic function is normal. Atria The left atrium is mildly dilated. Right atrium is mildly dilated. There is no color Doppler evidence of interatrial shunt. Aortic Valve The aortic valve is mildly thickened. There is no hemodynamically significant aortic valvular stenosis. Trace aortic regurgitation is present. Mitral Valve The mitral valve is normal in structure. No evidence of mitral valve stenosis. Mild mitral regurgitation is present. Tricuspid Valve The tricuspid valve leaflets are thin and pliable. Mild tricuspid regurgitation. RVSP is 35-40 mmHg. Pulmonic Valve The pulmonary valve is grossly normal in structure. Trace pulmonic valve regurgitation is present. Great Vessels The aortic root is normal in size. IVC is normal in size and collapses >50% with inspiration. Pericardium There is no pericardial effusion. Other Information Study Quality: Fair Conclusion Normal biventricular systolic function. Mild biatrial dilation. Mild MR, mild TR. RVSP is 35-40 mmHg. Electronically signed by : Trudy Goodman MD 06/08/2025 00:01:57
== END 2025-06-01 23:59 | disposition home or self-care (01) ==
LOC: RAD 06:43
PROVIDERS: PCP Family Medicine; Visit Provider Nurse Practitioner Family
DX: I08.1 Rheumatic disorders of both mitral and tricuspid valves (principal); I49.1 Atrial premature depolarization; I11.9 Hypertensive heart disease without heart failure; I25.118 Atherosclerotic heart disease of native coronary artery with other forms of angina pectoris; E78.00 Pure hypercholesterolemia, unspecified; R94.39 Abnormal result of other cardiovascular function study; R94.31 Abnormal electrocardiogram [ECG] [EKG]
CPT/HCPCS: 78452; 93017; 93018; 93306; A9502; J2785

== ENCOUNTER 2025-07-03 07:55 | Day surgery (SDC) | payer MEDICARE, MEDICAID, SELFPAY ==
[2025-07-03] VITALS (11 sets, daily range): BP systolic 95–138; BP diastolic 45–98; PULSE 56–81; RESP 18–20; TEMP 37.1; O2SAT 93–96; BMI 42.7
--- NOTE | 2025-07-03 08:25 | IR_ITS ---
APPROVED REPORT Patient Location: Outpatient Client Support Consultant: CHRISTY Jefferson RT (R) PROCEDURES Left heart catheterization Left ventriculogram Selective coronary angiogram INDICATION Abnormal Myoview Informed consent was obtained prior to the procedure. COMPLICATIONS NONE Estimated Blood Loss: LESS THAN 10 ML TECHNIQUE One percent lidocaine used to anesthetize the right anterior aspect of the wrist. The right radial artery was accessed via the Seldinger technique. A 6 Kisw[place]ili sheath was placed in the right radial artery. 2.5 mg of Verapamil, 800 mcg of nitroglycerin, 1mg Lidocaine and 5000 U Heparin were given through the arterial sheath. The JL3 catheter was also used to perform left heart catheterization, left ventriculogram and selective coronary angiogram. At the end of the procedure the sheath was removed good hemostasis was achieved using Traclet band, patient was transferred to the postop holding area in stable condition. ANGIOGRAPHIC RESULTS The left main artery Normal The left anterior descending artery Normal The circumflex artery Normal The right coronary artery Normal The HENDRICKS ventriculogram reveals Normal 60% The left ventricular end-diastolic pressure Elevated at 20 mmHg IMPRESSION Normal coronary arteries Normal ejection fraction Mildly elevated LVEDP PLAN 1. Medical management Electronically signed by : Stanford Cordero MD 07/03/2025 12:13:16
[2025-07-03 08:26] LABS: Hematocrit 40.1 % (37.0-47.0); Hemoglobin 13.9 g/dL (12.2-16.2); Immature Granulocytes % 0.5 %; Mean Corpuscular HGB Conc 34.7 g/dL (31.8-35.4); Mean Corpuscular Hemoglobin 30.5 pg (27.0-31.2); Mean Corpuscular Volume 87.9 fl (81-99); Nucleated Red Blood Cells % 0 %; Platelet Count 187 K/mm3 (142-424); Red Blood Count 4.56 M/mm3 (4.20-5.40); Red Cell Distribution Width-SD 38.2 fL; White Blood Count 6.5 K/mm3 (4.8-10.8)
[2025-07-03 08:38] LABS: Chloride 102 mmol/L (98-107); Potassium 3.8 mmoL/L (3.5-5.1); Sodium 140 mmol/L (136-145)
[2025-07-03 08:41] LABS: Anion Gap 14.8 mEq/L (5-15); Blood Urea Nitrogen 14 mg/dl (7-17); Carbon Dioxide 27 mmol/L (22.0-30.0); Creatinine Clearance Estimated 52 mL/min (50-200); Creatinine,Serum 0.80 mg/dl (0.52-1.04); Estimated Glomerular Filt Rate 72 ml/min (>60); GFR (African American) 87 ML/MIN (>60)
[2025-07-03 08:42] LABS: Calcium 9.2 mg/dl (8.4-10.2); Glucose 106 mg/dl (74-100)
[2025-07-03] MEDS: NITROGLYCERIN 800MCG/8ML SYR (CATH LAB) 800 MCG IA (09:51)
[2025-07-03] MEDS: LIDOCAINE 1% 10ML MDV 10 ML IJ (09:51)
[2025-07-03] MEDS: HEPARIN 1,000 UNITS/500ML NS (CATH LAB) 3000 UNIT IV (09:51)
[2025-07-03] MEDS: VERAPAMIL 2.5MG/ML 2ML VIAL 2.5 MG IV (09:52)
[2025-07-03] MEDS: HEPARIN 1,000 UNITS/ML 10ML VIAL (CATH LAB) 5000 UNIT IV (09:52)
[2025-07-03] MEDS: 0.9 % SODIUM CHLORIDE 500 ML 25 ML IV (09:53)
[2025-07-03] MEDS: FENTANYL 100MCG/2ML VIAL 25 MCG IV (10:19)
[2025-07-03] MEDS: MIDAZOLAM HCL 1MG/ML 5ML VIAL 1 MG IV (10:19)
[2025-07-03] MEDS: ACETAMINOPHEN 325MG TAB 325 MG PO (10:57)
== END 2025-07-03 12:54 | disposition home or self-care (01) ==
PROVIDERS: PCP Family Medicine; Visit Provider Internal Medicine
PROC: 4A023N7 Measurement of Cardiac Sampling and Pressure, Left Heart, Percutaneous Approach (ICD-10-PCS; CPT 93452; principal; 2025-07-03 07:45)
DX: I25.118 Atherosclerotic heart disease of native coronary artery with other forms of angina pectoris (principal); R93.1 Abnormal findings on diagnostic imaging of heart and coronary circulation; R06.02 Shortness of breath; R94.39 Abnormal result of other cardiovascular function study; I51.89 Other ill-defined heart diseases; I11.0 Hypertensive heart disease with heart failure; E03.9 Hypothyroidism, unspecified; E66.01 Morbid (severe) obesity due to excess calories; I73.9 Peripheral vascular disease, unspecified; Z68.41 Body mass index [BMI] 40.0-44.9, adult; I70.1 Atherosclerosis of renal artery; E78.2 Mixed hyperlipidemia; G47.33 Obstructive sleep apnea (adult) (pediatric); Z79.02 Long term (current) use of antithrombotics/antiplatelets; Z79.82 Long term (current) use of aspirin; Z79.890 Hormone replacement therapy; Z79.51 Long term (current) use of inhaled steroids; Z79.899 Other long term (current) drug therapy; Z79.84 Long term (current) use of oral hypoglycemic drugs; Z95.5 Presence of coronary angioplasty implant and graft; Z88.5 Allergy status to narcotic agent
CPT/HCPCS: 80048; 85025; 93458; 99152; C1760; C1769; C1887; J1200; J1644; J2003; J3010; J7040; Q9967